=== PATIENT | male | born 1940 | race Caucasian/White ===

== ENCOUNTER 2021-12-01 06:32 | Emergency (ER) | payer OTHER, MEDICARE ==
[2021-12-01 06:53] LABS: Absolute Lymphocytes (CBC) 1.6 K/uL (0.7-4.9); Hematocrit 42.3 % (39.6-49.0); Lymphocytes % 26.8 % (15.3-44.8); MPV 10.3 fL (7.6-11.3); RBC Red Blood Cell Count 4.62 M/uL (4.33-5.43)
[2021-12-01] MEDS ORDERED: NA CHLORIDE 0.9% 1,000 ML ONE (06:54)
[2021-12-01] MEDS ORDERED: AMIODARONE HCL 200 MG TAB ONE (06:54)
[2021-12-01] MEDS ORDERED: Magnesium Sulfate 2gm IVPB 2 G/50 ML BAG IV ONE (06:54)
[2021-12-01 06:58] LABS: Protime INR 2.62
--- NOTE | 2021-12-01 07:03 | ER ---
Nurse's Notes [facility] Name: Babar Andres Jr Age: 81 yrs Sex: Male : 1940 Arrival Date: 12/01/2021 Time: 06:33 Bed 4 Private MD: Diagnosis: Presence of cardiac pacemaker;Encounter for adjustment and management of automatic implantable cardiac defibrillator-discharge;Chest pain, unspecified;Cardiomegaly Presentation: 12/01 06:35 Chief complaint: EMS states: toned out for defibrillator going off. went off in the as6 night and then again this morning. Coronavirus screen: At this time, the client does not indicate any symptoms associated with coronavirus-19. Ebola Screen: No symptoms or risks identified at this time. Initial Sepsis Screen: Does the patient meet any 2 criteria? No. Patient's initial sepsis screen is negative. Does the patient have a suspected source of infection? No. Patient's initial sepsis screen is negative. Risk Assessment: Do you want to hurt yourself or someone else? Patient reports no desire to harm self or others. Onset of symptoms was November 30, 2021. Care prior to arrival: IV initiated. 22 GA, in the right hand. 06:35 Method Of Arrival: EMS: [facility] as6 06:35 Acuity: GISSELLE 2 Historical: - Allergies: 06:38 PENICILLINS; as6 - Home Meds: 06:38 Vitamin D Oral 50,000 unit weekly [Active]; glimepiride 2 mg Oral tab 1 tab once daily as6 [Active]; amiodarone 200 mg Oral tab 1 tab 2 times per day [Active]; carvedilol 25 mg oral tab 1 tab 2 times per day [Active]; warfarin 1 mg Oral tab 1 tab once daily [Active]; quinapril 40 mg Oral tab 1 tab once daily [Active]; simvastatin 20 mg Oral tab 1 tab once daily [Active]; tamsulosin 0.4 mg oral cap 1 cap once daily [Active]; furosemide 80 mg Oral tab 1 tab 2 times per day [Active]; montelukast 10 mg oral tab 1 tab once daily [Active]; spironolactone 25 mg Oral tab 1 tab once daily [Active]; - PMHx: 06:38 Atrial fibrillation; Congestive heart failure; Diabetes mellitus; Hypertensive disorder;as6 - PSHx: 06:38 pacemaker; eye; as6 - Immunization history:: Client reports having NOT received the Covid vaccine. - Social history:: Smoking status: Patient/guardian denies using tobacco, but has a distant history of tobacco abuse. - Family history:: not pertinent. Screenin:49 Abuse screen: Denies threats or abuse. Denies injuries from another. Nutritional as6 screening: No deficits noted. Tuberculosis screening: No symptoms or risk factors identified. Fall Risk None identified. Assessment: 06:52 General: Appears in no apparent distress. comfortable, Behavior is calm, cooperative. as6 Pain: Denies pain. Neuro: Level of Consciousness is awake, alert, obeys commands, Oriented to person, place, time, situation. Cardiovascular: Edema is 3+ to BLE Rhythm is atrial pacer. Respiratory: Respiratory effort is even, unlabored, Respiratory pattern is regular, symmetrical. 07:00 Reassessment: REPORT FROM FLACO DELAROSA. 81YO WM P/W DEFIB FIRING. TRANSFER IN PROCESS. bp 08:00 Reassessment: REPORT TO IMMANUEL DELAROSA AT [facility]. TRANSPORT PENDING. bp 09:11 Reassessment: TRANSPORT TO B/S. bp Vital Signs: 06:35 BP 121 / 84; Pulse 86; Resp 15 S; Temp 98.6(O); Pulse Ox 93% on R/A; Weight 107.95 kg as6 (R); Height 6 ft. 2 in. (187.96 cm) (R); Pain 0/10; 07:00 BP 124 / 71; Pulse 73; Resp 21; Pulse Ox 96% ; bp 08:00 BP 116 / 66; Pulse 70; Resp 17; Pulse Ox 95% ; bp 09:11 BP 115 / 60; Pulse 72; Resp 16; Pulse Ox 95% ; bp 06:35 Body Mass Index 30.56 (107.95 kg, 187.96 cm) as6 ED Course: 06:33 Patient arrived in ED. as6 06:37 Cain Hendricks MD is Attending Physician. chris 06:38 Triage completed. as6 06:44 Initial lab(s) drawn, by me, sent to lab. bb 06:48 Arm band placed on. EKG completed in triage. Results shown to MD. as6 06:49 Flaco Blanc, RN is Primary Nurse. as6 06:49 Placed in gown. Bed in low position. Call light in reach. Side rails up X2. Cardiac as6 monitor on. Pulse ox on. NIBP on. 07:00 XRAY Chest (1 view) In Process Unspecified. EDMS 07:00 Maintain EMS IV. Dressing intact. Good blood return noted. Site clean \T\ dry. Gauge \T\ bp site: 22 GA R HAND. 07:25 initiated transfer to [facility],pt accepted in transfer by Dr alma delia Arreola, admin approval given by Aruna Quick. pt go to ER. 08:21 No provider procedures requiring assistance completed. Patient transferred, IV remains bp in place. 08:24 Primary Nurse role handed off by Flaco Blanc RN bp 08:24 Barrington Altman, RN is Primary Nurse. bp Administered Medications: 06:57 Discontinued: NS 0.9% 1000 ml IV at 125 ml/hr continuous chris 06:51 Drug: amiodarone 200 mg Route: PO; as6 07:45 Follow up: Response: No adverse reaction bp 06:52 Drug: NS 0.9% 1000 ml Route: IV; Rate: 125 ml/hr; Site: right antecubital; as6 06:52 Drug: Magnesium Sulfate 2 grams Route: IVPB; Infused Over: 1 hrs; Site: right as6 antecubital; 07:57 Follow up: Response: No adverse reaction; IV Status: Completed infusion ph 06:58 Drug: NS 0.9% 1000 ml Route: IV; Rate: 50 ml/hr; Site: right hand; as6 08:22 Follow up: IV Status: Infusion continued upon transfer bp Outcome: 07:03 ER care complete, transfer ordered by . chris 09:12 Transferred by ground EMS Note: [facility] bp 09:12 Condition: stable 09:12 Instructed on the need for transfer. 09:13 Patient left the ED. bp Signatures: Dispatcher [employer] EDMS Chana Palacios Corey, MD MD cha Ballard, Brenda, RN RN bb Cynthia Hedrick RN RN ph Barrington Altman RN RN bp Flaco Blanc RN RN as6 Corrections: (The following items were deleted from the chart) 06:48 06:38 Home Meds: amiodarone 100 mg Oral tab 1 tab every other day; as6 as6
--- NOTE | 2021-12-01 07:03 | EDPHYS ---
Physician Documentation [facility] Name: Babar Andres Jr Age: 81 yrs Sex: Male : 1940 Arrival Date: 12/01/2021 Time: 06:33 Bed 4 Private MD: ED Physician Cain Hendricks HPI: 12/01 06:47 This 81 yrs old Male presents to ER via EMS with complaints of cp , sob and chris defib fired x2. 06:47 The patient has shortness of breath at rest. Onset: The symptoms/episode began/occurred chris 1 day(s) ago. Duration: The symptoms are continuous, and are steadily getting worse. The patient's shortness of breath is aggravated by nothing, is alleviated by elevating head. The patient or guardian reports chest pain that is located primarily in the anterior chest wall, bilaterally. Onset: last night. The pain does not radiate. Associated signs and symptoms: The patient has no apparent associated signs or symptoms. Severity of symptoms: At their worst the symptoms were mild moderate in the emergency department the symptoms are unchanged. Associated signs and symptoms: Pertinent positives: lower extremity swelling, palpitations, shortness of breath. The chest pain is described as a pressure. Historical: - Allergies: 06:38 PENICILLINS; as6 - Home Meds: 06:38 Vitamin D Oral 50,000 unit weekly [Active]; glimepiride 2 mg Oral tab 1 tab once daily as6 [Active]; amiodarone 200 mg Oral tab 1 tab 2 times per day [Active]; carvedilol 25 mg oral tab 1 tab 2 times per day [Active]; warfarin 1 mg Oral tab 1 tab once daily [Active]; quinapril 40 mg Oral tab 1 tab once daily [Active]; simvastatin 20 mg Oral tab 1 tab once daily [Active]; tamsulosin 0.4 mg oral cap 1 cap once daily [Active]; furosemide 80 mg Oral tab 1 tab 2 times per day [Active]; montelukast 10 mg oral tab 1 tab once daily [Active]; spironolactone 25 mg Oral tab 1 tab once daily [Active]; - PMHx: 06:38 Atrial fibrillation; Congestive heart failure; Diabetes mellitus; Hypertensive disorder;as6 - PSHx: 06:38 pacemaker; eye; as6 - Immunization history:: Client reports having NOT received the Covid vaccine. - Social history:: Smoking status: Patient/guardian denies using tobacco, but has a distant history of tobacco abuse. - Family history:: not pertinent. ROS: 06:47 Constitutional: Negative for fever, chills, and weight loss, Eyes: Negative for injury, chris pain, redness, and discharge, ENT: Negative for injury, pain, and discharge, Neck: Negative for injury, pain, and swelling, Abdomen/GI: Negative for abdominal pain, nausea, vomiting, diarrhea, and constipation, Back: Negative for injury and pain, : Negative for injury, bleeding, discharge, and swelling, MS/Extremity: Negative for injury and deformity, Skin: Negative for injury, rash, and discoloration, Neuro: Negative for headache, weakness, numbness, tingling, and seizure, Psych: Negative for depression, anxiety, suicide ideation, homicidal ideation, and hallucinations, Allergy/Immunology: Negative for hives, rash, and allergies, Endocrine: Negative for neck swelling, polydipsia, polyuria, polyphagia, and marked weight changes. 06:47 Cardiovascular: Positive for chest pain, palpitations. Exam: 06:47 Constitutional: This is a well developed, well nourished patient who is awake, alert, chris and in no acute distress. Head/Face: Normocephalic, atraumatic. Eyes: Pupils equal round and reactive to light, extra-ocular motions intact. Lids and lashes normal. Conjunctiva and sclera are non-icteric and not injected. Cornea within normal limits. Periorbital areas with no swelling, redness, or edema. ENT: Nares patent. No nasal discharge, no septal abnormalities noted. Tympanic membranes are normal and external auditory canals are clear. Oropharynx with no redness, swelling, or masses, exudates, or evidence of obstruction, uvula midline. Mucous membranes moist. Neck: Trachea midline, no thyromegaly or masses palpated, and no cervical lymphadenopathy. Supple, full range of motion without nuchal rigidity, or vertebral point tenderness. No Meningismus. Chest/axilla: Normal chest wall appearance and motion. Nontender with no deformity. No lesions are appreciated. Cardiovascular: Regular rate and rhythm with a normal S1 and S2. No gallops, murmurs, or rubs. Normal PMI, no JVD. No pulse deficits. Respiratory: Lungs have equal breath sounds bilaterally, clear to auscultation and percussion. No rales, rhonchi or wheezes noted. No increased work of breathing, no retractions or nasal flaring. Abdomen/GI: Soft, non-tender, with normal bowel sounds. No distension or tympany. No guarding or rebound. No evidence of tenderness throughout. Back: No spinal tenderness. No costovertebral tenderness. Full range of motion. Male : Normal genitalia with no discharge or lesions. Skin: Warm, dry with normal turgor. Normal color with no rashes, no lesions, and no evidence of cellulitis. Neuro: Awake and alert, GCS 15, oriented to person, place, time, and situation. Cranial nerves II-XII grossly intact. Motor strength 5/5 in all extremities. Sensory grossly intact. Cerebellar exam normal. Normal gait. Psych: Awake, alert, with orientation to person, place and time. Behavior, mood, and affect are within normal limits. 06:47 Musculoskeletal/extremity: ROM: intact in all extremities, full active range of motion, full passive range of motion, Circulation is intact in all extremities. Sensation intact. Compartment Syndrome exam of affected extremity: is normal. DVT Exam: no pain, negative Homans' sign noted on exam, no appreciated bluish discoloration, no erythema, no increased warmth, swelling, tenderness. 06:58 ECG was reviewed by the Attending Physician. chris Vital Signs: 06:35 BP 121 / 84; Pulse 86; Resp 15 S; Temp 98.6(O); Pulse Ox 93% on R/A; Weight 107.95 kg as6 (R); Height 6 ft. 2 in. (187.96 cm) (R); Pain 0/10; 07:00 BP 124 / 71; Pulse 73; Resp 21; Pulse Ox 96% ; bp 08:00 BP 116 / 66; Pulse 70; Resp 17; Pulse Ox 95% ; bp 09:11 BP 115 / 60; Pulse 72; Resp 16; Pulse Ox 95% ; bp 06:35 Body Mass Index 30.56 (107.95 kg, 187.96 cm) as6 MDM: 06:37 Patient medically screened. chris 06:54 Differential diagnosis: Anemia Anxiety Reaction Chronic Obstructive Pulmonary Disease chris abnormal EKG, acute myocardial infarction, acute pericarditis, anxiety, esophagitis, gastritis, peptic ulcer disease, pneumonia, pneumothorax, pulmonary embolus, Myocardial Infarction pneumonia, pulmonary edema, reactive airway disease, Unstable Angina. Antibiotic administration: Not indicated. HEART Score: History: Slightly Suspicious (0), ECG: Non specific repolarization disturbance / LBTB / PM (1), Age: > or = 65 years (2), Risk Factors: > or = 3 Risk factors for atherosclerotic disease (2), [Hypercholesterolemia] [Hypertension] [DM] [+ Family HX] [Obesity]. The patient was not given aspirin in the Emergency Department. Not indicated due to patient's past medical history. The patient's Wells Deep Vein Thrombosis Score was calculated as follows: Total Score: 0. This patient was found to be at low risk for a deep vein thrombosis by using the Well's assessment criteria Total Score: 0-2 Pts- Low Risk. The patient's pulmonary embolism risk score was calculated as follows: Total Score: 0-2 points. This patient was found to be at low risk for a pulmonary embolism by using the Well's assessment criteria Total Score: 0-2 points. This patient was found to be at low risk for a pulmonary embolism by using the Well's assessment criteria. JACLYN Risk Score: 1 - patient's age is greater or equal to 65 years, 1 - Three or more CAD risk factors, 1- Known CAD, 1 - Recent [<24hrs] Severe Angina, TOTAL SCORE = 4. Immunization status: Pneumococcal vaccine: Influenza vaccine: Data reviewed: vital signs, nurses notes, lab test result(s), EKG, radiologic studies, plain films. Data interpreted: cloud software engineer: rate is 86 beats/min, Pulse oximetry: on room air is 93 %. Test interpretation: by ED physician or midlevel provider: ECG, plain radiologic studies. Counseling: I had a detailed discussion with the patient and/or guardian regarding: the historical points, exam findings, and any diagnostic results supporting the discharge/admit diagnosis, the presence of at least one elevated blood pressure reading (>120/80) during this emergency department visit, lab results, radiology results, the need to transfer to another facility, for higher level of care, [facility] does not immediately have the required specialist. 12/01 06:39 Order name: Basic Metabolic Panel; Complete Time: 07:20 chris 12/01 06:39 Order name: CBC with Diff; Complete Time: 07:20 chris 12/01 06:39 Order name: LFT's; Complete Time: 07:20 chris 12/01 06:39 Order name: Magnesium; Complete Time: 07:20 12/01 06:39 Order name: NT PRO-BNP; Complete Time: 07:20 12/01 06:39 Order name: PT-INR; Complete Time: 07:20 chris 12/01 06:39 Order name: Troponin HS; Complete Time: 07:20 [facility] 12/01 06:39 Order name: XRAY Chest (1 view); Complete Time: 07:20 chris 12/01 06:39 Order name: EKG; Complete Time: 06:40 chris 12/01 06:39 Order name: SARS-COV-2 RT PCR (Document "Date of Onset" if Symptomatic) 12/01 06:39 Order name: Cardiac monitoring; Complete Time: 06:48 12/01 06:39 Order name: EKG - Nurse/Tech; Complete Time: 06:48 chris 12/01 06:39 Order name: IV Saline Lock; Complete Time: 06:48 [facility] 12/01 06:39 Order name: Labs collected and sent; Complete Time: 06:48 12/01 06:39 Order name: O2 Per Protocol; Complete Time: 06:48 chris 12/01 06:39 Order name: O2 Sat Monitoring; Complete Time: 06:48 chris EC:58 Rate is 77 beats/min. Rhythm is regular. QRS [place] is Normal. DC interval is normal. QRS chris interval is normal. QT interval is prolonged. No Q waves. T waves are Normal. No ST changes noted. Clinical impression: Abnormal EKG without significant change and No evidence of ischemia. Interpreted by me. Administered Medications: 06:57 Discontinued: NS 0.9% 1000 ml IV at 125 ml/hr continuous chris 06:51 Drug: amiodarone 200 mg Route: PO; as6 07:45 Follow up: Response: No adverse reaction bp 06:52 Drug: NS 0.9% 1000 ml Route: IV; Rate: 125 ml/hr; Site: right antecubital; as6 06:52 Drug: Magnesium Sulfate 2 grams Route: IVPB; Infused Over: 1 hrs; Site: right as6 antecubital; 07:57 Follow up: Response: No adverse reaction; IV Status: Completed infusion ph 06:58 Drug: NS 0.9% 1000 ml Route: IV; Rate: 50 ml/hr; Site: right hand; 08:22 Follow up: IV Status: Infusion continued upon transfer bp Disposition Summary: 12/01/21 07:03 Transfer Ordered Transfer Location: Other Acute Care Facility chris Reason: Higher level of care chris Condition: Fair chris Problem: new chris Symptoms: have improved chris Accepting Physician: dr caraballo(12/01/21 09:13) bp Diagnosis - Presence of cardiac pacemaker chris - Encounter for adjustment and management of automatic implantable cardiac chris defibrillator - discharge - Chest pain, unspecified chris - Cardiomegaly chris Forms: - Medication Reconciliation Form chris - SBAR form chris Signatures: Dispatcher [employer] EDMS Cain Hendricks MD MD cha Peltier, Brian RN RN bp Flaco Blanc RN RN as6 Cynthia Hedrick RN ph Corrections: (The following items were deleted from the chart) 06:48 06:38 Home Meds: amiodarone 100 mg Oral tab 1 tab every other day; 07:21 07:03 dr ilya perez chris 09:13 07:21 dr ilya perez bp
--- NOTE | 2021-12-01 07:07 | RAD REPORT ---
EXAM DESCRIPTION: RAD - Chest Single View - 12/01/2021 6:59 am CLINICAL HISTORY: CHEST PAIN COMPARISON: Two view chest 03/24/2021 TECHNIQUE: AP portable chest image was obtained 12/01/2021 6:59 am . FINDINGS: No peripheral mass or consolidation. Baseline interstitial pattern is accentuated slightly by lower lung volumes. A minimal interstitial edema or infiltrate could be masked. Significant cardi omegaly is present with central vasculature in the range for normal. Left subclavian defibrillator is in place. No measurable pleural effusion and no pneumothorax. No acute bony abnormality seen. No acu te aortic findings suspected. IMPRESSION: Cardiomegaly without significant failure or volume overload findings. Shallow inspiration exam accentuates interstitial pattern a mild interstitial edema or infiltrate cou ld be masked.
[2021-12-01 07:15] LABS: Albumin 3.9 g/dL (3.4-5.0); Bilirubin Direct 0.3 mg/dL (0-0.2); Bilirubin Total 0.8 mg/dL (0.2-1.0); Magnesium 2.3 mg/dL (1.8-2.4); Potassium 3.7 mmol/L (3.5-5.1); Protein, Total 7.7 g/dL (6.4-8.2); Troponin High Sensitivity 47.8 pg/mL (<58.9)
[2021-12-01 09:19] VITALS: TEMP 98.6
[2021-12-01 09:22] VITALS: O2SAT 95
[2021-12-01 09:23] VITALS: BP 115/60
--- NOTE | 2021-12-01 09:32 | EKG ---
Test Date: 2021-12-01 Test Time: 06:40:45 Materials Handler: GER MEASUREMENT RESULTS: Intervals: Rate: 77 LA: QRSD: 194 QT: 484 QTc: 547 [place]: P: LA: QRS: 199 T: 118 INTERPRETIVE STATEMENTS: Electronic ventricular pacemaker Compared to ECG 02/27/2012 08:23:52 Sinus rhythm no longer present First degree AV block no longer present Left-axis deviation no longer present Right bundle-branch block no longer present Electronically Signed On 12-01-21 09:31:39 CDT by Juan Gonsales
== END 2021-12-01 09:13 ==
LOC: ER 06:32
DX: Z45.02 Encounter for adjustment and management of automatic implantable cardiac defibrillator (principal); I51.7 Cardiomegaly; E11.9 Type 2 diabetes mellitus without complications; I10 Essential (primary) hypertension; I50.9 Heart failure, unspecified; I48.91 Unspecified atrial fibrillation; Z79.01 Long term (current) use of anticoagulants; Z20.822 Contact with and (suspected) exposure to COVID-19; Z88.0 Allergy status to penicillin
CPT/HCPCS: 93005; 85025; 80048; 36415; 83735; 85610; 80076; 84484; 83880; 71045; U0003; J3475; J7030; 96365; 99285

== ENCOUNTER 2023-03-03 11:10 | Emergency (ER) | payer OTHER, MEDICARE ==
--- OUTSIDE RECORDS SUMMARY | 2023-03-03 11:17 | XMS REPORT | Continuity of Care Document ---
:1940 Author Organization [facility] t Address [address] [place] [address] [place] [id number] Care Team Providers Name Role Phone Stuart Motley Attending Clinician Unavailable Marv, Rosalino Attending Clinician Unavailable Stuart Motley Admitting Clinician Unavailable Marv, [place] Admitting Clinician Unavailable Payers Payer Name Policy Type Policy Number Effective Date Expiration Date S ource Problems This patient has no known problems. Allergies, Adverse Reactions, Alerts Allergy Allergy Status Severity Reaction(s) Onset Inactive Treating Comm ents Source Name Type Date Date Clinician Penicill DA Active U RASH-UNKNOWN HC A ins 09-12 [place] 00:00: [address] Medications This patient has no known medications. Procedures Procedure Date / Time Performed Performing Clinician Suraj pinky [id number] 2021-12-15 00:00:00 [facility] [id number] 2021-12-15 00:00:00 [facility] [id number] 2021-12-15 00:00:00 [facility] Encounters Start End Encounter Admission Attending Care Care Encounter Source Date/Time Date/Time Type Type Clinicians Facility Department ID 2022-06-08 2022-06-08 Outpatient ZAIRE Gibson SURG [id number] [facility] 09:53:00 09:53:00 Stuart Llanos [facility] 2021-12-15 2021-12-17 Inpatient ZAIRE Gibson TELE [id number] [facility] 18:04:00 15:59:00 Stuart 95 [facility] 2021-12-15 2021-12-17 Inpatient ESVIN Motley [facility] TELE [id number] [facility] 18:04:00 15:59:00 Stuart [id number] [facility] 2021-12-01 2021-12-03 Inpatient MARVA Fair, [facility] TELE [id number] 50 [facility] 11:03:00 12:31:00 [place] 26 [facility] Results Test Description Test Time Test Comments Results Result Comments Source GLUCOSE BEDSIDE TESTING 2022-06-08 15:04:00 Test Item Value Reference Range Interpretation Comme nts GLUCOSE BEDSIDE TESTING (test code = GLUBED) 119 MG/DL 60-99 H BASIC METABOLIC [id number] 11:51:00 Test Item Value Reference Range Interpretation Comments SODIUM (test code = 142 MMOL/L 137-145 N NA) POTASSIUM (test code = 4.9 MMOL/L 3.5-5.1 N K) CHLORIDE (test code = 98 MMOL/L 98-107 N CL) CARBON DIOXIDE (test 36 MMOL/L 22-30 H code = CO2) ANION GAP (test code = 13 MMOL/L 14-24 L GAP) GLUCOSE (test code = 176 MG/DL 74-106 H GLU) BLOOD UREA NITROGEN 37 MG/DL 9-20 H (test code = BUN) GLOMERULAR FILTRATION 48 Report ing units: RATE (test code = GFR) ml/mi n/1.73 m2 (Modified MDRD Formula)Referen ce Range: > or = 6 0 ml/min/1.73 m2 CREATININE (test code 1.40 MG/DL 0.66-1.25 H = CREAT) CALCIUM (test code = 9.3 MG/DL 8.4-10.2 N CA) [id number] 11:51:00 Test Item Value Reference Range Interpretation Comments MAGNESIUM (test code = MAG) 2.4 MG/DL 1.6-2.3 H PROTHROMBIN [id number] 11:33:00 Test Item Value Reference Range Interpretation Comments PROTHROMBIN TIME 11.9 SECONDS 9.4-12.7 PATIENT (test code = PTP) INTERNATIONAL NORMAL 1.1 0.86-1.14 N The INR is to be RATIO (test code = used only for INR) monitoring oral anticoagulantth erap y. INDICATION I NR VALUE ---- ---- ---- -------1. Prophylaxis, de ep venous thrombos is, including high risk surgery. 2.0 - 3.0 2. Prophylaxis, deep venous thrombosis, hip surgery, treatm ent for deep venous thrombosis or pulmonary prevention of systemic emboli sm in patients wit h valvular heart disease, atrial fibrillation, tissue heart va lve, or acute myocar dial infarction. 2.0 - 3.0 3. Netezza Developer al prosthesis hear t valves, recurre nt systemic emboli sm. 3.0 - 4.5 PTT [id number] 11:33:00 Test Item Value Reference Range Interpretation Comments PTT ACTIVATED (test code = APTT) 25.5 SECONDS 26.2-35.4 L CBC W/AUTO [id number] 10:53:00 Test Item Value Reference Range Interpretation Comments WHITE BLOOD CELL (test code = 7.3 K/MM3 3.8-9.8 N WBC) RED BLOOD CELL (test code = 5.13 M/MM3 3.95-5.67 N RBC) HEMOGLOBIN (test code = HGB) 15.4 G/DL 12.4-16.7 N HEMATOCRIT (test code = HCT) 49.3 % 35.9-49.5 N MEAN CELL VOLUME (test code = 96 fL 81.7-96.1 N MCV) MEAN CELL HGB (test code = MCH) 30.0 pg 27.6-33.2 N MEAN CELL HGB CONCETRATION 31.2 % 32.9-35.5 L (test code = MCHC) RED CELL DISTRIBUTION WIDTH 13.9 % 12.1-15.2 N (test code = RDW) PLATELET COUNT (test code = 111 K/MM3 129-368 L PLT) MEAN PLATELET VOLUME (test code 11.9 fl 7.4-10.4 H = MPV) NEUTROPHIL % (test code = NT%) 61.9 % 43-75 N IMMATURE GRANULOCYTE % (test 0.3 % 0.0-2.0 N code = IG%) LYMPHOCYTE % (test code = LY%) 29.2 % 14-44 N MONOCYTE % (test code = MO%) 6.7 % 4-13 N EOSINOPHIL % (test code = EO%) 1.4 % 0-6 N BASOPHIL % (test code = BA%) 0.5 % 0-2 N NUCLEATED RBC % (test code = 0.0 % 0-1.0 N NRBC%) NEUTROPHIL # (test code = NT#) 4.54 K/mm3 2.0-7.6 N IMMATURE GRANULOCYTE # (test 0.02 x10 3/uL 0-0.03 N code = IG#) LYMPHOCYTE # (test code = LY#) 2.14 K/mm3 1.0-3.8 N MONOCYTE # (test code = MO#) 0.49 K/mm3 0.1-0.8 N EOSINOPHIL # (test code = EO#) 0.10 K/mm3 0.0-0.2 N BASOPHIL # (test code = BA#) 0.04 K/mm3 0.0-0.2 N NUCLEATED RBC # (test code = 0.00 K/mm3 0.0-0.1 N NRBC#) PROTHROMBIN [id number] 09:47:00 Test Item Value Reference Range Interpretation Comments PROTHROMBIN TIME 21.7 SECONDS 9.4-12.7 H PATIENT (test code = PTP) INTERNATIONAL NORMAL 1.9 0.86-1.14 H The INR is to be RATIO (test code = used only for INR) monitoring oral anticoagulantth erap y. INDICATION I NR VALUE ---- ---- ---- -------1. Prophylaxis, de ep venous thrombos is, including high risk surgery. 2.0 - 3.0 2. Prophylaxis, deep venous thrombosis, hip surgery, treatm ent for deep venous thrombosis or pulmonary prevention of systemic emboli sm in patients wit h valvular heart disease, atrial fibrillation, tissue heart va lve, or acute myocar dial infarction. 2.0 - 3.0 3. Netezza Developer al prosthesis hear t valves, recurre nt systemic emboli sm. 3.0 - 4.5 BASIC METABOLIC [id number] 08:40:00 Test Item Value Reference Range Interpretation Comments SODIUM (test code = 138 MMOL/L 137-145 N NA) POTASSIUM (test code = 4.2 MMOL/L 3.5-5.1 N K) CHLORIDE (test code = 99 MMOL/L 98-107 N CL) CARBON DIOXIDE (test 33 MMOL/L 22-30 H code = CO2) GLUCOSE (test code = 129 MG/DL 74-106 H GLU) BLOOD UREA NITROGEN 31 MG/DL 9-20 H (test code = BUN) GLOMERULAR FILTRATION > 60 Report ing units: RATE (test code = GFR) ml/mi n/1.73 m2 (Modified MDRD Formula)Referen ce Range: > or = 6 0 ml/min/1.73 m2 CREATININE (test code 1.10 MG/DL 0.66-1.25 N = CREAT) CALCIUM (test code = 8.6 MG/DL 8.4-10.2 N CA) CBC W/AUTO [id number] 08:29:00 Test Item Value Reference Range Interpretation Comments WHITE BLOOD CELL (test code = 7.4 K/MM3 3.8-9.8 N WBC) RED BLOOD CELL (test code = 4.17 M/MM3 3.95-5.67 N RBC) HEMOGLOBIN (test code = HGB) 12.6 G/DL 12.4-16.7 N HEMATOCRIT (test code = HCT) 40.6 % 35.9-49.5 N MEAN CELL VOLUME (test code = 97 fL 81.7-96.1 H MCV) MEAN CELL HGB (test code = MCH) 30.2 pg 27.6-33.2 N MEAN CELL HGB CONCETRATION 31.0 % 32.9-35.5 L (test code = MCHC) RED CELL DISTRIBUTION WIDTH 14.3 % 12.1-15.2 N (test code = RDW) PLATELET COUNT (test code = 109 K/MM3 129-368 L PLT) MEAN PLATELET VOLUME (test code 12.1 fl 7.4-10.4 H = MPV) NEUTROPHIL % (test code = NT%) 69.9 % 43-75 N IMMATURE GRANULOCYTE % (test 0.4 % 0.0-2.0 N code = IG%) LYMPHOCYTE % (test code = LY%) 20.9 % 14-44 N MONOCYTE % (test code = MO%) 7.9 % 4-13 N EOSINOPHIL % (test code = EO%) 0.4 % 0-6 N BASOPHIL % (test code = BA%) 0.5 % 0-2 N NUCLEATED RBC % (test code = 0.0 % 0-1.0 N NRBC%) NEUTROPHIL # (test code = NT#) 5.16 K/mm3 2.0-7.6 N IMMATURE GRANULOCYTE # (test 0.03 x10 3/uL 0-0.03 N code = IG#) LYMPHOCYTE # (test code = LY#) 1.54 K/mm3 1.0-3.8 N MONOCYTE # (test code = MO#) 0.58 K/mm3 0.1-0.8 N EOSINOPHIL # (test code = EO#) 0.03 K/mm3 0.0-0.2 N BASOPHIL # (test code = BA#) 0.04 K/mm3 0.0-0.2 N NUCLEATED RBC # (test code = 0.00 K/mm3 0.0-0.1 N NRBC#) - XR CHEST [id number] 08:18:00 [facility] 1940 Sex: M Patient Name: JENNIFER RODGERS Unit No: [id number] EXAMS: CPT CODE: [id number] XR CHEST 1V 11776 B2 EXAM: - XR CHEST 1V DATE: 12/17/2021 5:00 AM HISTORY: CHF COMPARISON: Chest x-ray 12/15/2021 FINDINGS: Interstitial opacities in both lungs. Pulmonary vascular congestion. Enlargement of the cardiac silhouette. No airspace consolidation or pleural effusions. No pneumothorax. 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 IMPRESSION: Stable mild fluid overload at 0818 Reported and signed by: Roma Tabares MD CC: Stuart Motley Technologist: Rose Marie Nagy, RT (R) Transcrpt Date/Tm/Trnsp: 12/17/2021 (08) t.[email or web address].MOP Orig Print D/T: S: 12/17/2021 (820) [facility] NAME: JENNIFER RODGERS [address] PHYS: [place] [address] : 1940 AGE: 81 SEX: M LOC: [id number] PHONE #: [phone] EXAM DATE: 12/17/2021 STATUS: ADM IN FAX #: [phone] RADIOLOGY NO: PAGE 1 Signed ReportBASIC METABOLIC [id number] 05:14:00 Test Item Value Reference Range Interpretation Comments SODIUM (test code = 141 MMOL/L 137-145 N NA) POTASSIUM (test code = 3.9 MMOL/L 3.5-5.1 N K) CHLORIDE (test code = 105 MMOL/L 98-107 N CL) CARBON DIOXIDE (test 28 MMOL/L 22-30 N code = CO2) ANION GAP (test code = 12 MMOL/L 14-24 L GAP) GLUCOSE (test code = 166 MG/DL 74-106 H GLU) BLOOD UREA NITROGEN 27 MG/DL 9-20 H (test code = BUN) GLOMERULAR FILTRATION > 60 Report ing units: RATE (test code = GFR) ml/mi n/1.73 m2 (Modified MDRD Formula)Referen ce Range: > or = 6 0 ml/min/1.73 m2 CREATININE (test code 1.00 MG/DL 0.66-1.25 = CREAT) CALCIUM (test code = 8.5 MG/DL 8.4-10.2 N CA) PROTHROMBIN [id number] 05:06:00 Test Item Value Reference Range Interpretation Comments PROTHROMBIN TIME 25.2 SECONDS 9.4-12.7 H PATIENT (test code = PTP) INTERNATIONAL NORMAL 2.2 0.86-1.14 H The INR is to be RATIO (test code = used only for INR) monitoring oral anticoagulantth erap y. INDICATION I NR VALUE ---- ---- ---- -------1. Prophylaxis, de ep venous thrombos is, including high risk surgery. 2.0 - 3.0 2. Prophylaxis, deep venous thrombosis, hip surgery, treatm ent for deep venous thrombosis or pulmonary prevention of systemic emboli sm in patients wit h valvular heart disease, atrial fibrillation, tissue heart va lve, or acute myocar dial infarction. 2.0 - 3.0 3. Netezza Developer al prosthesis hear t valves, recurre nt systemic emboli sm. 3.0 - 4.5 CBC W/AUTO [id number] 04:55:00 Test Item Value Reference Range Interpretation Comments WHITE BLOOD CELL (test code = 9.2 K/MM3 3.8-9.8 N WBC) RED BLOOD CELL (test code = 4.20 M/MM3 3.95-5.67 N RBC) HEMOGLOBIN (test code = HGB) 12.6 G/DL 12.4-16.7 N HEMATOCRIT (test code = HCT) 40.6 % 35.9-49.5 N MEAN CELL VOLUME (test code = 97 fL 81.7-96.1 H MCV) MEAN CELL HGB (test code = MCH) 30.0 pg 27.6-33.2 N MEAN CELL HGB CONCETRATION 31.0 % 32.9-35.5 L (test code = MCHC) RED CELL DISTRIBUTION WIDTH 14.1 % 12.1-15.2 N (test code = RDW) PLATELET COUNT (test code = 104 K/MM3 129-368 L PLT) MEAN PLATELET VOLUME (test code 12.2 fl 7.4-10.4 H = MPV) NEUTROPHIL % (test code = NT%) 84.5 % 43-75 H IMMATURE GRANULOCYTE % (test 0.4 % 0.0-2.0 N code = IG%) LYMPHOCYTE % (test code = LY%) 10.0 % 14-44 L MONOCYTE % (test code = MO%) 5.0 % 4-13 N EOSINOPHIL % (test code = EO%) 0.0 % 0-6 N BASOPHIL % (test code = BA%) 0.1 % 0-2 N NUCLEATED RBC % (test code = 0.0 % 0-1.0 N NRBC%) NEUTROPHIL # (test code = NT#) 7.76 K/mm3 2.0-7.6 H IMMATURE GRANULOCYTE # (test 0.04 x10 3/uL 0-0.03 H code = IG#) LYMPHOCYTE # (test code = LY#) 0.92 K/mm3 1.0-3.8 L MONOCYTE # (test code = MO#) 0.46 K/mm3 0.1-0.8 N EOSINOPHIL # (test code = EO#) 0.00 K/mm3 0.0-0.2 N BASOPHIL # (test code = BA#) 0.01 K/mm3 0.0-0.2 N NUCLEATED RBC # (test code = 0.00 K/mm3 0.0-0.1 N NRBC#) - XR CHEST [id number] 19:07:00 [facility] 1940 Sex: M Patient Name: JENNIFER RODGERS Unit No: [id number] EXAMS: CPT CODE: [id number] XR CHEST 1V [id number] Location: H3 CHEST X-RAY: AP frontal projection, one view, 12/15/21 CLINICAL HISTORY: CHF COMPARISON EXAMS: 09/12/13 chest x-ray exam FINDINGS: The heart size is prominent even more so than previously seenwith moderate degree of cardiomegaly. Pacemaker seen in situ. Pulmonary venous engorgement and mild i nterstitial edema. This appears slightly more prominent. IMPRESSION: Small degree of evolving fluidoverload at 1907 Reported and signed by: Orville Pradhan MD CC: Stuart Motley Technologist: Daya Bruce RT(R) T qi Date/Tm/Trnsp: 12/15/2021 (1906) [id number] Orig Print D/T: S: 12/15/2021 (2114) [facility] NAME: JENNIFER RODGERS [address] PHYS: [place] [address] : 1940 AGE: 81 SEX: M LOC: [id number].I14 A PHONE #: [phone] EXAM DATE: 12/15/2021 STATUS: ADM IN FAX #: [phone] RADIOLOGY NO: PAGE 1 Signed ReportACT-ISTAT 2021-12-15 17:48:00 Test Item Value Reference Range Interpretation Comments ACT-ISTAT (test code = ACTI) 303 SEC 74-137 H [id number] 17:28:00 Test Item Value Reference Range Interpretation Comments ACT-ISTAT (test code = ACTI) 321 SEC 74-137 H [id number] 17:28:00 Test Item Value Reference Range Interpretation Comments ACT-ISTAT (test code = ACTI) 345 SEC 74-137 H [id number] 16:27:00 Test Item Value Reference Range Interpretation Comments ACT-ISTAT (test code = ACTI) 285 SEC 74-137 H [id number] 15:58:00 Test Item Value Reference Range Interpretation Comments ACT-ISTAT (test code = ACTI) 297 SEC 74-137 H [id number] 15:29:00 Test Item Value Reference Range Interpretation Comments ACT-ISTAT (test code = ACTI) 237 SEC 74-137 H BASIC METABOLIC [id number] 10:53:00 Test Item Value Reference Range Interpretation Comments SODIUM (test code = 142 MMOL/L 137-145 N NA) POTASSIUM (test code = 3.9 MMOL/L 3.5-5.1 N K) CHLORIDE (test code = 98 MMOL/L 98-107 N CL) CARBON DIOXIDE (test 34 MMOL/L 22-30 H code = CO2) ANION GAP (test code = 14 MMOL/L 14-24 N GAP) GLUCOSE (test code = 160 MG/DL 74-106 H GLU) BLOOD UREA NITROGEN 33 MG/DL 9-20 H (test code = BUN) GLOMERULAR FILTRATION 48 Report ing units: RATE (test code = GFR) ml/mi n/1.73 m2 (Modified MDRD Formula)Referen ce Range: > or = 6 0 ml/min/1.73 m2 CREATININE (test code 1.40 MG/DL 0.66-1.25 H = CREAT) CALCIUM (test code = 10.0 MG/DL 8.4-10.2 N CA) [id number] 10:53:00 Test Item Value Reference Range Interpretation Comments MAGNESIUM (test code = MAG) 2.5 MG/DL 1.6-2.3 H COVID 19 Asymptomatic IH [id number] 10:48:00 Test Item Value Reference Range Interpretation Comments COVID 19 NEGATIVE Negative "Negative resul ts from Asymptomatic IH AG patients with symptom (test code = onset beyondfiv e days, COVNONPUIAG) should be treat ed as presumptive, andconfirmation with a molecular assay , if necessary forpa tient management may be performed. Nega tive results do notr ule out COVID-19 and sh ould not be used as the sole basisfor treatm ent or patient managem ent decisions, includinginfect ion control decisio ns. Negative result s should beconsidered in the context of a pa tients recent exposure s,history, and the presenc e of clinical signs and symptomsconsist ent with COVID-19.This t est detects both vi able andnon-viable S ARS-CoV and SARS CoV-2. Test performance dep endson the amount of virus (antigen) in the sample." PROTHROMBIN [id number] 10:45:00 Test Item Value Reference Range Interpretation Comments PROTHROMBIN TIME 28.3 SECONDS 9.4-12.7 H PATIENT (test code = PTP) INTERNATIONAL NORMAL 2.5 0.86-1.14 H The INR is to be RATIO (test code = used only for INR) monitoring oral anticoagulantth erap y. INDICATION I NR VALUE ---- ---- ---- -------1. Prophylaxis, de ep venous thrombos is, including high risk surgery. 2.0 - 3.0 2. Prophylaxis, deep venous thrombosis, hip surgery, treatm ent for deep venous thrombosis or pulmonary prevention of systemic emboli sm in patients wit h valvular heart disease, atrial fibrillation, tissue heart va lve, or acute myocar dial infarction. 2. 0 - 3.0 3. Netezza Developer al prosthesis hear t valves, recurre nt systemic emboli sm. 3.0 - 4.5 PTT [id number] 10:45:00 Test Item Value Reference Range Interpretation Comments PTT ACTIVATED (test code = APTT) 39.3 SECONDS 26.2-35.4 H CBC W/AUTO [id number] 10:21:00 Test Item Value Reference Range Interpretation Comments WHITE BLOOD CELL (test code = 6.4 K/MM3 3.8-9.8 N WBC) RED BLOOD CELL (test code = 4.53 M/MM3 3.95-5.67 N RBC) HEMOGLOBIN (test code = HGB) 13.6 G/DL 12.4-16.7 N HEMATOCRIT (test code = HCT) 43.7 % 35.9-49.5 N MEAN CELL VOLUME (test code = 97 fL 81.7-96.1 H MCV) MEAN CELL HGB (test code = MCH) 30.0 pg 27.6-33.2 N MEAN CELL HGB CONCETRATION 31.1 % 32.9-35.5 L (test code = MCHC) RED CELL DISTRIBUTION WIDTH 14.3 % 12.1-15.2 N (test code = RDW) PLATELET COUNT (test code = 117 K/MM3 129-368 L PLT) MEAN PLATELET VOLUME (test code 12.2 fl 7.4-10.4 H = MPV) NEUTROPHIL % (test code = NT%) 68.5 % 43-75 N IMMATURE GRANULOCYTE % (test 0.3 % 0.0-2.0 N code = IG%) LYMPHOCYTE % (test code = LY%) 22.4 % 14-44 N MONOCYTE % (test code = MO%) 7.4 % 4-13 N EOSINOPHIL % (test code = EO%) 0.9 % 0-6 N BASOPHIL % (test code = BA%) 0.5 % 0-2 N NUCLEATED RBC % (test code = 0.0 % 0-1.0 N NRBC%) NEUTROPHIL # (test code = NT#) 4.38 K/mm3 2.0-7.6 N IMMATURE GRANULOCYTE # (test 0.02 x10 3/uL 0-0.03 N code = IG#) LYMPHOCYTE # (test code = LY#) 1.43 K/mm3 1.0-3.8 N MONOCYTE # (test code = MO#) 0.47 K/mm3 0.1-0.8 N EOSINOPHIL # (test code = EO#) 0.06 K/mm3 0.0-0.2 N BASOPHIL # (test code = BA#) 0.03 K/mm3 0.0-0.2 N NUCLEATED RBC # (test code = 0.00 K/mm3 0.0-0.1 N NRBC#) GLUCOSE BEDSIDE [id number] 11:05:00 Test Item Value Reference Range Interpretation Comments GLUCOSE BEDSIDE TESTING (test code 136 MG/DL 60-99 H = GLUBED) GLUCOSE BEDSIDE [id number] 07:34:00 Test Item Value Reference Range Interpretation Comments GLUCOSE BEDSIDE TESTING (test code 190 MG/DL 60-99 H = GLUBED) BASIC METABOLIC [id number] 07:08:00 Test Item Value Reference Range Interpretation Comments SODIUM (test code = 137 MMOL/L 137-145 N NA) POTASSIUM (test code = 3.9 MMOL/L 3.5-5.1 N K) CHLORIDE (test code = 100 MMOL/L 98-107 N CL) CARBON DIOXIDE (test 33 MMOL/L 22-30 H code = CO2) ANION GAP (test code = 8 MMOL/L 14-24 L GAP) GLUCOSE (test code = 133 MG/DL 74-106 H GLU) BLOOD UREA NITROGEN 20 MG/DL 9-20 N (test code = BUN) GLOMERULAR FILTRATION > 60 Report ing units: RATE (test code = GFR) ml/mi n/1.73 m2 (Modified MDRD Formula)Referen ce Range: > or = 6 0 ml/min/1.73 m2 CREATININE (test code 1.00 MG/DL 0.66-1.25 N = CREAT) CALCIUM (test code = 8.9 MG/DL 8.4-10.2 N CA) PROTHROMBIN [id number] 06:54:00 Test Item Value Reference Range Interpretation Comments PROTHROMBIN TIME 32.0 SECONDS 9.4-12.7 H PATIENT (test code = PTP) INTERNATIONAL NORMAL 2.8 0.86-1.14 H The INR is to be RATIO (test code = used only for INR) monitoring oral anticoagulantth erap y. INDICATION I NR VALUE ---- ---- ---- -------1. Prophylaxis, de ep venous thrombos is, including high risk surgery. 2.0 - 3.0 2. Prophylaxis, deep venous thrombosis, hip surgery, treatm ent for deep venous thrombosis or pulmonary prevention of systemic emboli sm in patients wit h valvular heart disease, atrial fibrillation, tissue heart va lve, or acute myocar dial infarction. 2. 0 - 3.0 3. Netezza Developer al prosthesis hear t valves, recurre nt systemic emboli sm. 3.0 - 4.5 GLUCOSE BEDSIDE [id number] 19:19:00 Test Item Value Reference Range Interpretation Comments GLUCOSE BEDSIDE TESTING (test code 120 MG/DL 60-99 H = GLUBED) GLUCOSE BEDSIDE [id number] 15:22:00 Test Item Value Reference Range Interpretation Comments GLUCOSE BEDSIDE TESTING (test code = 83 MG/DL 60-99 N GLUBED) GLUCOSE BEDSIDE [id number] 10:49:00 Test Item Value Reference Range Interpretation Comments GLUCOSE BEDSIDE TESTING (test code 159 MG/DL 60-99 H = GLUBED) [id number] 08:04:00 Test Item Value Reference Range Interpretation Comments MAGNESIUM (test code = MAG) 2.1 MG/DL 1.6-2.3 N COMPREHENSIVE METABOLIC [id number] 07:13:00 Test Item Value Reference Range Interpretation Comments SODIUM (test code 137 MMOL/L 137-145 N = NA) POTASSIUM (test 3.8 MMOL/L 3.5-5.1 N code = K) CHLORIDE (test 101 MMOL/L 98-107 N code = CL) CARBON DIOXIDE 32 MMOL/L 22-30 H (test code = CO2) ANION GAP (test 8 MMOL/L 14-24 L code = GAP) GLUCOSE (test 143 MG/DL 74-106 H code = GLU) BLOOD UREA 19 MG/DL 9-20 NITROGEN (test code = BUN) GLOMERULAR > 60 Reporting units : FILTRATION RATE ml/min/1.73 m2 (Modified (test code = GFR) MDRD Formu la)Reference Range: > or = 6 0 ml/min/1.73 m2 CREATININE (test 0.90 MG/DL 0.66-1.25 code = CREAT) TOTAL PROTEIN 6.5 G/DL 6.2-7.6 N [facility] Clinical Diagnostic (test code = has made us bernadette re of PROT) newinformation regarding the potential i nterference ofEltrombopag ( a bone marrow stimulan t used to treatthrombocyt onmenia and aplastic anemia ) with specific assays on the Desktimes 5600 of which Total Protein is one of thoseassays per formed in our lab.Interfe rence testing perform ed at Orth[facility] determined that Eltrombopag does interfere with Vitros Total Protein asfollowsEltrom bopag Interference fo r Vitros Product Total Protein:======= Eltrombopag Max Observed Av g. BiasConcentrati on Concentration Concentration== ==== 2.5 mg/dl 6.0 g/dl +0.41 +0.34 3.5 mg/dl 6.0 g /dl +0.50 +0.45 5 mg/dl 6.0 g/dl +0.73 +0.65 2.5 mg/dl 8.0 g/dl +0.44 +0.4 1 3.5 mg/dl 8.0 g/dl +0.55 +0.52 5 mg/dl 8.0 g/dl +0.86 +0.77 ALBUMIN (test 3.7 G/DL 3.5-5.0 N code = ALB) CALCIUM (test 8.9 MG/DL 8.4-10.2 N code = CA) BILIRUBIN TOTAL 1.0 MG/DL 0.2-1.3 N Eltrombopag Interference (test code = for Vitros Prod uct TBil, BILT) BuBc: Assa y Eltrombopag Sophia lyte/ Max Observed Avg. B ias Concentration C oncentration Concentration== ====TBil 7mg/dl TBil/ 1. 2mg/dl +0.23mg.dl +0.2 0mg/dlBuBc 3.5mg/dl Bu/0.8 mg/dl +0.25mg/dl +0. 24mg/dlBuBc 7 mg/dl Bu/14.2 mg/dl +0.38mg/dl +0.2 5mg/dlBuBc 5mg/dl Bc/0mg/d l +0.25mg/dl +0.15mg/dlBuBc 3.5mg/dl Bc/2.8mg/dl +0. 25mg/dl +0.23mg/dl SGOT/AST (test 23 UNITS/L 17-59 N code = AST) SGPT/ALT (test 13 UNITS/L 0-49 N code = ALT) ALKALINE 80 UNITS/L 38-126 N PHOSPHATASE (test code = ALKP) LIPID PROFILE (CORONARY RISK)2021-12-02 07:13:00 Test Item Value Reference Range Interpretation Comments TRIGLYCERIDES (test 67 MG/DL 150-199 L TRIGLYCE RIDES code = TRIG) REFERENCE RANGE:Normal: < 150 mg/dLBorderline High: 150-199 mg/dLHi gh: 200-499 mg/dLVe ry High: >=500 mg/ dL CHOLESTEROL (test code 109 MG/DL <200 = CHOL) HDL CHOLESTEROL (test 39 MG/DL 40-59 L code = HDL) LIPOPROTEIN LDL (test 51 MG/DL 0-99 N OPTIM AL.........<100 code = LDL) mg/dLNEAR OPTIMAL/ABOVE OPTIMAL........ .100-12 9 mg/dL BORDERL INE HIGH.........13 0-159 mg/dL HIGH.........16 0-189 mg/dL VERY HIGH.........>/ = 190 mg/dL GLUCOSE BEDSIDE [id number] 07:04:00 Test Item Value Reference Range Interpretation Comments GLUCOSE BEDSIDE TESTING (test code 158 MG/DL 60-99 H = GLUBED) GLYCOSYLATED HEMOGLOBIN [id number] 06:57:00 Test Item Value Reference Range Interpretation Comments GLYCOSYLATED 7.0 % 4.8-5.9 H Any condition t hat HEMOGLOBIN (HA1C) shortens e rythocyte (test code = survival or dec reasesmean GLYHGB) erythrocyte age (e.g., recovery from a cute blood loss,hemolytic anemia) will falsely lo wer HGBA1c resultsregardle ss of the method used. HG BA1c results from [facility] HbSS, HbCC, and HbSc must be interpreted with cautiongiven th e pathological pr ocesses, including anemia,increase d red cell turnover, trans fusion requirements, thatadversely i mpact HGBA1c as a mar ker of long-term glycemiccontrol . Alternative for ms of testing such as fructosaminesho uld be considered for these patients. MEAN BLOOD GLUCOSE 154 MG/DL 70-110 H (test code = MBG) PROTHROMBIN [id number] 06:39:00 Test Item Value Reference Range Interpretation Comments PROTHROMBIN TIME 33.1 SECONDS 9.4-12.7 H PATIENT (test code = PTP) INTERNATIONAL NORMAL 2.9 0.86-1.14 H The INR is to be RATIO (test code = used only for INR) monitoring oral anticoagulantth erap y. INDICATION I NR VALUE ---- ---- ---- -------1. Prophylaxis, de ep venous thrombos is, including high risk surgery. 2.0 - 3.0 2. Prophylaxis, deep venous thrombosis, hip surgery, treatm ent for deep venous thrombosis or pulmonary prevention of systemic emboli sm in patients wit h valvular heart disease, atrial fibrillation, tissue heart va lve, or acute myocar dial infarction. 2.0 - 3.0 3. Netezza Developer al prosthesis hear t valves, recurre nt systemic emboli sm. 3.0 - 4.5 CBC W/AUTO [id number] 06:31:00 Test Item Value Reference Range Interpretation Comments WHITE BLOOD CELL (test code = 8.8 K/MM3 3.8-9.8 N WBC) RED BLOOD CELL (test code = 4.27 M/MM3 3.95-5.67 N RBC) HEMOGLOBIN (test code = HGB) 12.9 G/DL 12.4-16.7 N HEMATOCRIT (test code = HCT) 40.7 % 35.9-49.5 N MEAN CELL VOLUME (test code = 95 fL 81.7-96.1 N MCV) MEAN CELL HGB (test code = MCH) 30.2 pg 27.6-33.2 N MEAN CELL HGB CONCETRATION 31.7 % 32.9-35.5 L (test code = MCHC) RED CELL DISTRIBUTION WIDTH 14.5 % 12.1-15.2 N (test code = RDW) PLATELET COUNT (test code = 109 K/MM3 129-368 L PLT) MEAN PLATELET VOLUME (test code 12.3 fl 7.4-10.4 H = MPV) NEUTROPHIL % (test code = NT%) 73.3 % 43-75 N IMMATURE GRANULOCYTE % (test 0.2 % 0.0-2.0 N code = IG%) LYMPHOCYTE % (test code = LY%) 17.5 % 14-44 N MONOCYTE % (test code = MO%) 7.8 % 4-13 N EOSINOPHIL % (test code = EO%) 0.7 % 0-6 N BASOPHIL % (test code = BA%) 0.5 % 0-2 N NUCLEATED RBC % (test code = 0.0 % 0-1.0 N NRBC%) NEUTROPHIL # (test code = NT#) 6.46 K/mm3 2.0-7.6 N IMMATURE GRANULOCYTE # (test 0.02 x10 3/uL 0-0.03 N code = IG#) LYMPHOCYTE # (test code = LY#) 1.54 K/mm3 1.0-3.8 N MONOCYTE # (test code = MO#) 0.69 K/mm3 0.1-0.8 N EOSINOPHIL # (test code = EO#) 0.06 K/mm3 0.0-0.2 N BASOPHIL # (test code = BA#) 0.04 K/mm3 0.0-0.2 N NUCLEATED RBC # (test code = 0.00 K/mm3 0.0-0.1 N NRBC#) GLUCOSE BEDSIDE [id number] 21:28:00 Test Item Value Reference Range Interpretation Comments GLUCOSE BEDSIDE TESTING (test code 148 MG/DL 60-99 H = GLUBED) [id number] 19:35:00 Test Item Value Reference Range Interpretation Comments TROPONIN-I (test code = TROPI) 0.055 NG/ML 0.012-0.033 H GLUCOSE BEDSIDE [id number] 17:21:00 Test Item Value Reference Range Interpretation Comments GLUCOSE BEDSIDE TESTING (test code 194 MG/DL 60-99 H = GLUBED) GLUCOSE BEDSIDE [id number] 16:28:00 Test Item Value Reference Range Interpretation Comments GLUCOSE BEDSIDE TESTING (test code 205 MG/DL 60-99 H = GLUBED) LIPOPROTEIN LDL [id number] 15:19:00 Test Item Value Reference Range Interpretation Comments LIPOPROTEIN LDL DIRECT 55 mg/dL 100-129 L ===== (test code = LDLDIR) ======= ==Refe rence Interval: mg/dL mmol/L--------- ------ ------ ------ --Optimal <100 <2.6Near/above optimal 100-129 2.6-3.3Borderli ne High 130-159 3.4-4.1High 160 -189 4.1-4.9Very Hig h >=190 >=4.9==== ===== This LDL result is a direct measurement.=== ====== [id number] 15:19:00 Test Item Value Reference Range Interpretation Comments TROPONIN-I (test code = TROPI) 0.050 NG/ML 0.012-0.033 H PROTHROMBIN [id number] 15:04:00 Test Item Value Reference Range Interpretation Comments PROTHROMBIN TIME 29.7 SECONDS 9.4-12.7 H PATIENT (test code = PTP) INTERNATIONAL NORMAL 2.6 0.86-1.14 H The INR is to be RATIO (test code = used only for INR) monitoring oral anticoagulantth erap y. INDICATION I NR VALUE ---- ---- ---- -------1. Prophylaxis, de ep venous thrombos is, including high risk surgery. 2.0 - 3.0 2. Prophylaxis, deep venous thrombosis, hip surgery, treatm ent for deep venous thrombosis or pulmonary prevention of systemic emboli sm in patients wit h valvular heart disease, atrial fibrillation, tissue heart va lve, or acute myocar dial infarction. 2.0 - 3.0 3. Netez[employer] Developer al prosthesis hear t valves, recurre nt systemic emboli sm. 3.0 - 4.5 BASIC METABOLIC [id number] 12:09:00 Test Item Value Reference Range Interpretation Comments SODIUM (test code = 139 MMOL/L 137-145 N NA) POTASSIUM (test code = 3.8 MMOL/L 3.5-5.1 N K) CHLORIDE (test code = 102 MMOL/L 98-107 N CL) CARBON DIOXIDE (test 29 MMOL/L 22-30 N code = CO2) GLUCOSE (test code = 141 MG/DL 74-106 H GLU) BLOOD UREA NITROGEN 24 MG/DL 9-20 H (test code = BUN) GLOMERULAR FILTRATION > 60 Report ing units: RATE (test code = GFR) ml/mi n/1.73 m2 (Modified MDRD Formula)Referen ce Range: > or = 6 0 ml/min/1.73 m2 CREATININE (test code 1.10 MG/DL 0.66-1.25 N = CREAT) CALCIUM (test code = 9.4 MG/DL 8.4-10.2 N CA) [id number] 12:09:00 Test Item Value Reference Range Interpretation Comments TROPONIN-I (test code = TROPI) 0.035 NG/ML 0.012-0.033 H CBC W/O [id number] 11:23:00 Test Item Value Reference Range Interpretation Comments WHITE BLOOD CELL (test code = 8.1 K/MM3 3.8-9.8 N WBC) RED BLOOD CELL (test code = 4.69 M/MM3 3.95-5.67 N RBC) HEMOGLOBIN (test code = HGB) 14.0 G/DL 12.4-16.7 N HEMATOCRIT (test code = HCT) 44.2 % 35.9-49.5 N MEAN CELL VOLUME (test code = 94 fL 81.7-96.1 N MCV) MEAN CELL HGB (test code = MCH) 29.9 pg 27.6-33.2 N MEAN CELL HGB CONCETRATION 31.7 % 32.9-35.5 L (test code = MCHC) RED CELL DISTRIBUTION WIDTH 14.4 % 12.1-15.2 N (test code = RDW) PLATELET COUNT (test code = 126 K/MM3 129-368 L PLT) NEUTROPHIL # (test code = NT#) 5.33 K/mm3 2.0-7.6 N IMMATURE GRANULOCYTE # (test 0.02 x10 3/uL 0-0.03 N code = IG#) LYMPHOCYTE # (test code = LY#) 2.16 K/mm3 1.0-3.8 N MONOCYTE # (test code = MO#) 0.56 K/mm3 0.1-0.8 N EOSINOPHIL # (test code = EO#) 0.04 K/mm3 0.0-0.2 N BASOPHIL # (test code = BA#) 0.03 K/mm3 0.0-0.2 N NUCLEATED RBC # (test code = 0.00 K/mm3 0.0-0.1 N NRBC#) Notes Date/Time Note Provider Source 2022-06-08 17:37:00-00:00 [id number] [address] PATIENT NAME: JENNIFER RODGERS JR ADMIT DATE: 06/08/22 ACCOUNT NO: [id number] ROOM NO: AGE: 81 REPORT TYPE: CARDIAC CATHETERIZATION REPORT SEX: M ADMITTING PHYSICIAN: ATTENDING PHYSICIAN:Stuart Motley MD PROCEDURE DATE: 06/08/2022 PROCEDURE: Non-thoracotomy biventricular pacing AICD generator change. PREOPERATIVE DIAGNOSES: 1. Chronic systolic heart failure. 2. Biventricular pacing AICD elective replacemen t. POSTOPERATIVE DIAGNOSES: 1. Chronic systolic heart failure. 2. Biventricular pacing AICD elective replacemen t. SURGEON: Stuart Motley M.D. LIABILITY CLAIMS ADJUSTER: None. ANESTHESIA: Local anesthesia with 1% lidocaine a nd moderate sedation. PROCEDURE IN DETAIL: After informed consent was obtained explaining to the patient risks, benefits and alternatives, the patient was brought to the cardiac catheterization lab in the fasting postabsorptiv e state. He was prepped and draped in sterile fashion. Local anesthesia was applied over the existing pocket with 1% lidocaine. Access to the pocket w as obtained with sharp and blunt dissection utilizing e lectrocautery. The generator was dissected free and removed. The 0 Ethibond stitch securing the device was removed. The pocket was flushed with antibiotic-containing solution. The leads were disconnected from the existing generator and connected to the new generator. The pocket was flushed with antibiotic-containing solution agai n. Frank was applied to the pocket. A device was placed in a TYRX sleeve. Th e device and sleeve were placed in the pocket and secured in the pocket w ith 0 Ethibond suture. The pocket was closed in 3 layers using 2-0 Vicryl for subcutaneous layers and 4-0 Vicryl for the skin. Interrupted Prolene sutures were utilized to secure the lateral edges of the device as there was significant scar tissue from previous generator changes. IMPLANT DATA: 1. Pulse generator [employer] model G125, serial #[id number]. 2. Right atrial lead Guidant model 4136, serial #[id number]. 3. Right ventricular lead Guidant model 0154, se rial #[id number]. 4. Left ventricular lead Guidant model 4543, ser ial #[id number]. Explanted generator [employer] model N161 , serial #[id number] implant date PATIENT NAME: JENNIFER RODGERS JR ACCOUNT #: Z [id number] 09/12/2013, explant 06/08/2022. Stimulation threshold data: Right atrium, thresh old 0.9 volts at 0.4 milliseconds, impedance 606 ohms, current 1.5 mi lliamps. Right ventricle, threshold 1 volt at 0.4 milliseconds, impedance 421 ohms, shock impedance 47 ohms, current 2.4 milliamps. Left ventricle, threshold 1.2 volts at 0.8 ashely seconds, impedance 483 ohms, current 2.5 milliamps (LV tip to can). CONCLUSION: Successful non-thoracotomy biventric ular pacing AICD generator change. ESTIMATED BLOOD LOSS: 3 mL. COMPLICATIONS: No complications. Dictated By: Stuart Motley MD Date Dictated: 06/08/2022 17:37:22 Date Transcribed: 06/08/2022 19:29:01 [facility] Receipt ID: [id number] Authenticated by Stuart Motley MD On 06/14/20 04:18:56 PM at 0418 PATIENT NAME: JENNIFER RODGERS JR ACCOUNT #: Z [id number] 2022-06-08 10:32:00-00:00 [id number] [place] [address] PATIENT NAME: JENNIFER RODGERS JR ADMIT DATE: 06/08/22 ACCOUNT NO: [id number] ROOM NO: AGE: 81 REPORT TYPE: ELECTROCARDIOGRAM SEX: M ADMITTING PHYSICIAN: ATTENDING PHYSICIAN:Stuart Motley MD Order: [id number] Test Reason : AICD GEN CHANGE Test Date/Time Stamp: TueJun 08 2022 10:32:20 Blood Pressure : / mmHG Vent. Rate : 060 BPM Atrial Rate : 059 BPM P-R Int : 000 ms QRS Dur : 188 ms QT Int : 518 ms P-R-T Axes : 000 -21 120 degree s QTc Int : 518 ms AV sequential or dual chamber electronic pacemak er When compared with ECG of 15-DEC-2021 20:58, Vent. rate has decreased BY 12 BPM Confirmed by ANDRIA JUDGE ([id number]) on 06/08/2022 4:23:17 PM Referred By: Stuart Motley Confirmed by:ANDRIA GONSALES at 1623 PATIENT NAME: JENNIFER RODGERS JR 2021-12-21 09:52:00-00:00 [id number] [place] [address] PATIENT NAME: JENNIFER RODGERS JR ADMIT DATE: 12/15/21 ACCOUNT NO: [id number] ROOM NO: Z365 AGE: 81 REPORT TYPE: 360 - QUERY RESPONSE DOCUMENT SEX: M ADMITTING PHYSICIAN:Stuart Motley MD ATTENDING PHYSICIAN:Stuart Motley MD Provider Query QUERY TEXT: Condition General 360MD Query related questions should be directed to: [email or web address] BASED ON YOUR CLINICAL JUDGEMENT CAN YOU SPECIFY THE KNOWN OR SUSPECTED CONDITION THAT REPRESENTS THE CLIN ICAL INDICATORS BELOW? (I.E. ACUTE / CHRONIC SYSTOLI C / DIASTOLIC HEART FAILURE, HYPERTENSION HEART DIS EASE WITHOUT HEART FAILURE, OTHER DISEASE OF THE CIR CULATORY SYSTEM, RESULTS OF NO CLINICAL SIGNIFICANCE OR OTHER MORE APPROPRIATE DIAGNOSIS) The patient's Clinical Indicators include: 12/16 CARDIOLOGY PROG NOTE - Ischemic cardiomyopa thy / HTN 12/16 Transesophageal Echocardiogram The estimate d ejection fraction is 25-29%. 12/15 IMAGING CXR FINDINGS: The heart size is pro minent even more so than previously seen with moderate degre e of cardiomegaly. IMPRESSION: Small degree of evolv ing fluid overload 12/17 IMAGING CXR IMPRESSION: Stable mild fluid o verload 12/16 MEDICATION ADMINISTRATION CARVEDILOL 25 MG TABLET - Dose: 25.0 - Ordered Route: PO 12/16 MEDICATION ADMINISTRATION Furosemide 40 mg/ 4 mL Inj - Dose: 40.0 - Ordered Route: IV Options provided: -- Respond - Create new note now -- Dismiss - Not applicable / Not valid -- Dismiss - Clinically unable to determine / Un known -- Assign to another provider QUERY RESPONSE: Acute on chronic systolic heart failure. Query created by: Jeniffer Irby on 12/17/2021 8:46 AM at 0952 PATIENT NAME: JENNIFER RODGERS JR ACCOUNT #: Z [id number] 2021-12-17 14:15:00-00:00 [id number] [place] [address] PATIENT NAME: JENNIFER RODGERS JR ADMIT DATE: 12/15/21 ACCOUNT NO: [id number] ROOM NO: [facility] AGE: 81 REPORT TYPE: DISCHARGE SUMMARY REPORT SEX: M ADMITTING PHYSICIAN:Stuart Motley MD ATTENDING PHYSICIAN:Stuart Motley MD ADMISSION DATE: 12/15/2021 DISCHARGE DATE: 12/17/2021 DISCHARGE DIAGNOSES: 1. Ischemic cardiomyopathy. 2. Ventricular tachycardia. 3. Multiple AICD shocks. HOSPITAL COURSE: This is an 81-year-old male with a nonischemic cardiomyopathy, ventricular tachycardia, and multiple AI CD shocks despite medical therapy, was admitted for ventricular tachycardia ablation. H e underwent an uncomplicated ablation and substrate modification. He tolerate d the procedure well. He was admitted and diuresed with intravenous Lasix. He is stable on the day of discharge. DISCHARGE MEDICATIONS: Per the medical reconcili ation report. DISCHARGE ACTIVITY: As tolerated. DISCHARGE DIET: Low fat, low cholesterol, 2 g so dium. FOLLOWUP: The patient is to follow up in [facility]. Dictated By: Stuart Motley MD WT: DS:JORDYN/OSORIO/BRIDGETTE Conf#: [id number]/DID#: [id number] Authenticated by Stuart Motley MD On 12/25/19 06:15:06 AM at 0615 PATIENT NAME: JENNIFER RODGERS JR ACCOUNT #: Z [id number] 2021-12-17 13:38:00-00:00 [facility] ([facility] Cardiology Progress Note REPORT#:[id number] REPORT STATUS: Signed DATE:12/17/21 TIME: 1338 PATIENT: JENNIFER RODGERS JR UNIT #: [id number] ROOM/BED: [address] : 38 AGE: 81 SEX: M ATTEND: Gabriel Motley MD ADM AUTHOR: Stuart Motley MD * ALL edits or amendments must be made on the [employer] document * Subjective Chief complaint: VTACH Patient reports: No: chest pain, palpitations, shortness of breat h. Objective General VS/I O: 24 hour I O ending at 0700: 12/17 0700 12/16 1900 Intake Total 450 250 Output Total 875 1400 Balance -425 -1150 Intake, Oral 450 250 Number 1 Bowel Movements Output, Urine 875 1400 Vital Signs: Date Time Temp Pulse Resp B/P B/P Pulse O2 O2 F low FiO2 Mean Ox Delivery Rate 12/17 1145 99.1 60 18 113/68 83.0 93 Nasal cannula 12/17 0654 98.8 59 18 111/66 81.2 96 Room air 12/17 0458 98.2 59 18 112/67 81.8 96 12/17 0014 97.2 61 18 104/62 76.4 97 12/16 2135 60 24 109/61 76.8 95 12/16 2000 Nasal 2 cannula 12/16 1857 98.4 60 18 112/64 79.9 96 12/16 1544 99.5 59 17 109/60 76.2 94 Nasal cannula PATIENT WEIGHT: Weight (lb): 233 Weight (oz): 11.04 Weight (kg): 106.000 Medications: Active Meds + DC'd Last 24 Hrs Tamsulosin HCl (FLOMAX) 0.4 MG BEDTIME PO Aspirin (CHILDREN'S ASPIRIN) 81 MG DAILY PO Fluticasone Propionate (FLONASE) 1 SPRAY BID MARY AL (CKD) Lisinopril (PRINIVIL) 20 MG DAILY PO Spironolactone (ALDACTONE) 25 MG QAM PO Warfarin Sodium (COUMADIN) 5 MG DAILY PO Furosemide (LASIX) 40 MG BID@0900,1700 IV Amiodarone HCl (CORDARONE) 200 MG BID PO Atorvastatin Calcium (LIPITOR) 10 MG BEDTIME PO Carvedilol (COREG) 25 MG BID PO Mupirocin (BACTROBAN NASAL - ADULT ICU) 1 APPLIC BID NASAL Glimepiride (AmaryL) 2 MG C BK PO Physical Exam General appearance: alert, awake, oriented Head/Eyes: abnl Conjunctiva/ sclera (Lft subconjunctival hemorrhage), atraumatic, normocephalic ENT: moist mucosal membranes Neck: no JVD Cardiovascular: CV assessment: regular rate and rhythm Respiratory: clear to auscultation, no distress Lower extremity: LE assessment: no edema Musculoskeletal: full range of motion Neuro/CREATIVE PRODUCER: alert, oriented X 3, CN II-XII intact Skin: dry, intact Wound/incision: Location: Bilateral groin Site condition: wound clean dry Psychiatry: normal affect, normal judgment/insig ht, normal mood Results Findings/Data: Laboratory Tests 12/17 752 Chemistry Sodium (137 - 145 MMOL/L) 138 Potassium (3.5 - 5.1 MMOL/L) 4.2 Chloride (98 - 107 MMOL/L) 99 Carbon Dioxide (22 - 30 MMOL/L) 33 H BUN (9 - 20 MG/DL) 31 H Creatinine (0.66 - 1.25 MG/DL) 1.10 Glomerular Filtr Rate > 60 Glucose (74 - 106 MG/DL) 129 H Calcium (8.4 - 10.2 MG/DL) 8.6 Laboratory Tests 12/17 752 Coagulation INR (0.86 - 1.14) 1.9 H PT Patient/Control Mix (9.4 - 12.7 SECONDS) 21. 7 H Laboratory Tests 12/17 752 Hematology WBC (3.8 - 9.8 K/MM3) 7.4 RBC (3.95 - 5.67 M/MM3) 4.17 Hgb (12.4 - 16.7 G/DL) 12.6 Hct (35.9 - 49.5 %) 40.6 MCV (81.7 - 96.1 fL) 97 H MCH (27.6 - 33.2 pg) 30.2 MCHC (32.9 - 35.5 %) 31.0 L RDW (12.1 - 15.2 %) 14.3 Plt Count (129 - 368 K/MM3) 109 L MPV (7.4 - 10.4 fl) 12.1 H Neut % (Auto) (43 - 75 %) 69.9 Lymph % (Auto) (14 - 44 %) 20.9 [place] % (Auto) (4 - 13 %) 7.9 Eos % (Auto) (0 - 6 %) 0.4 Baso % (Auto) (0 - 2 %) 0.5 Neut # (Auto) (2.0 - 7.6 K/mm3) 5.16 Lymph # (Auto) (1.0 - 3.8 K/mm3) 1.54 [place] # (Auto) (0.1 - 0.8 K/mm3) 0.58 Eos # (Auto) (0.0 - 0.2 K/mm3) 0.03 Baso # (Auto) (0.0 - 0.2 K/mm3) 0.04 Immature Gran % (0.0 - 2.0 %) 0.4 Nucleated RBC % (0 - 1.0 %) 0.0 Nucleated RBCs # (Man) (0.0 - 0.1 K/mm3) 0.00 Radiology data: Recent Impressions: RADIOLOGY - XR CHEST 1V 12/17 0725 Report Impression - Status: SIGNED Entered: 12/17/2021 08 IMPRESSION: Stable mild fluid overload Impression By: Coco Tabares MD Diagnosis, Assessment Plan Free Text DxA P Notes Free Text DxA P Notes: IMP: Ischemic cardiomyopathy CAD - stable HTN PAFIB AICD - [employer] ARCHITECT INTERN-D. PLAN: Transfer to tele Diuresis with IV lasix Ambulate with assist. at 1739 RPT #:[id number] END OF REPORT 2021-12-17 08:12:00-00:00 [id number] [address] PATIENT NAME: JENNIFER RODGERS ADMIT DATE: 12/15/21 ACCOUNT NO: [id number] ROOM NO: [facility] AGE: 81 REPORT TYPE: 360 - QUERY RESPONSE DOCUMENT SEX: M ADMITTING PHYSICIAN:Stuart Motley MD ATTENDING PHYSICIAN:Stuart Motley MD Provider Query QUERY TEXT: Condition General 360MD Query related questions should be directed to: [email or web address] BASED ON YOUR CLINICAL JUDGEMENT CAN YOU SPECIFY THE KNOWN OR SUSPECTED CONDITION THAT REPRESENTS THE CLIN ICAL INDICATORS BELOW? (I.E. MORBID (SEVERE) OBESITY DUE TO EXCESS CALORIES, EXOGENOUS OBESITY, MORBID (SEV ERE) OBESITY WITH ALVEOLAR HYPOVENTILATION, DRUG IND UCED OBESITY, OTHER OBESITY, OVERWEIGHT, OR OTHER AP PROPRIATE DIAGNOSIS) The patient's Clinical Indicators include: 12/15 EBCD ASSESSMENT HEIGHT 5' 2" WEIGHT 233 12/15 EBCD ASSESSMENT BMI 42.7 Options provided: -- Respond - Create new note now -- Dismiss - Not applicable / Not valid -- Dismiss - Clinically unable to determine / Un known -- Assign to another provider QUERY RESPONSE: Overweight Query created by: Jeniffer Irby on 12/16/2021 7:27 AM at 0812 PATIENT NAME: JENNIFER RODGERS JR ACCOUNT #: Z [id number] 2021-12-16 08:29:00-00:00 [id number] [place] [address] PATIENT NAME: JENNIFER RODGERS JR ADMIT DATE: 12/15/21 ACCOUNT NO: [id number] ROOM NO: Z.I14 AGE: 81 REPORT TYPE: eTRANSESOPHAGEAL ECHO SEX: M ADMITTING PHYSICIAN:Stuart Motley MD ATTENDING PHYSICIAN:Stuart Motley MD *[facility]* [address] [place] [id number] Transesophageal Echocardiogram Patient: Jennifer Rodgers Study Date: 12/15/2021 BP: Location: [facility] URN: [id number] : 1940 Age: 81 Height: / Gender: M Weight: / BMI/BSA: / *Ordering Physician: * Stuart Motley MD *Interpreting Physician: * Stuart Motley MD *Cafeteria Server: * Cain Olivas BS, [facility], RVS Indications: Atrial Fibrillation. Study data: Consent: The risks, benefits, and al ternatives to the procedure were explained to the patient and info rmed consent was obtained. Procedure: Initial setup: The patient was brought to the laboratory in the fasting state.Intravenous acce ss was obtained. Surface ECG leads and pulse oximetric signals were monit ored. Sedation. Moderate sedation was administered by cardiology staff. T ransesophageal echocardiography was performed. Topical anesthes ia was obtained using viscous lidocaine. A transesophageal probe (SN: [id number]) was inserted by the attending non destructive testing supervisor without difficulty. I mages were obtained using a SnappCloud cardiac ultrasound machine. Image rolando lity was adequate. Complete 2D, complete spectral Doppler, and colo r Doppler. Location: EP laboratory. Patient status: Outpatient. Maria L murcia room number: Sanitation Worker Room 3. Study status: Scheduled. Study compl etion: The patient tolerated the procedure well. There were no comp lications. Findings PATIENT NAME: JENNIFER RODGERS JR ACCOUNT #: Z [id number] [address] PATIENT NAME: JENNIFER RODGERS JR ADMIT DATE: 12/15/21 ACCOUNT NO: [id number] ROOM NO: Z.I14 AGE: 81 REPORT TYPE: eTRANSESOPHAGEAL ECHO SEX: M ADMITTING PHYSICIAN:Stuart Motley MD ATTENDING PHYSICIAN:Stuart Motley MD Left ventricle: Systolic function is moderately to severely reduced. The estimated ejection fraction is 25-29%. Right ventricle: The cavity size is normal. Syst olic function is normal. Aorta: The aorta is normal, normal size, and non -diseased. Aortic valve: The leaflets are mildly thickened. There is mild regurgitation. Mitral valve: The leaflets are mildly thickened. There is mild regurgitation. Tricuspid valve: The leaflets are mildly thicken ed. There is tricuspid prolapse. There is mild regurgitation. Pulmonic valve: The valve is structurally normal . There is no evidence of a vegetation. There is no regurgitat ion. Pericardium: There is no pericardial effusion. Conclusions Summary: 1. Left ventricle: Systolic function is moderate ly to severely reduced. The estimated ejection fraction is 25-29%. 2. Tricuspid valve: There is tricuspid prolapse. Prepared and electronically signed by Stuart Motley MD 12/16/2021 08:29 at 0829 PATIENT NAME: JENNIFER RODGERS JR ACCOUNT #: Z [id number] 2021-12-16 07:14:00-00:00 [id number] [place] [address] PATIENT NAME: JENNIFER RODGERS JR ADMIT DATE: 12/15/21 ACCOUNT NO: [id number] ROOM NO: Z.I14 AGE: 81 REPORT TYPE: CARDIAC CATHETERIZATION REPORT SEX: M ADMITTING PHYSICIAN:Stuart Motley MD ATTENDING PHYSICIAN:Stuart Motley MD PROCEDURE DATE: 12/15/2021 PROCEDURES: 1. Comprehensive electrophysiology study with ve ntricular ablation. 2. Intracardiac echocardiography. PREOPERATIVE DIAGNOSES: 1. Ischemic cardiomyopathy. 2. Coronary artery disease. 3. Old myocardial infarction. 4. Status post [employer] biventricular p acing AICD. 5. Ventricular tachycardia. This has resulted in recurrent AICD shocks. POSTPROCEDURE DIAGNOSES: 1. Ischemic cardiomyopathy. 2. Coronary artery disease. 3. Old myocardial infarction. 4. Status post [employer] biventricular p acing AICD. 5. Ventricular tachycardia. This has resulted in recurrent AICD shocks. ANESTHESIA: General endotracheal anesthesia. SCUBA DIVER: Stuart Motley MD LIABILITY CLAIMS ADJUSTER: None. PROCEDURE DETAILS: After informed consent was ob tained explaining to the patient the risks, benefits, and alternatives, t he patient was brought to the cardiac catheterization lab in the fasting postabsorptive state. He was prepped and draped in sterile fashion. Local anesthesia was applied over both femoral veins with 1% lidocaine. Access to the veins was obtained using modified Seldinger technique with althea ropuncture kit and ultrasound guidance. An 8-Bolivian sheath was placed in the right femoral vein. A 6 and 9-Bolivian sheaths were placed in left femoral vein. The sheaths were as pirated and flushed and connected to heparinized saline infusion. An int racardiac echocardiography catheter was advanced via the 9-Bolivian sheath an d placed in the right atrium. Intracardiac echocardiography was performed to v isualize the left atrium and interatrial septum. A 5-Bolivian Cournand catheter was advanced via the 6-Bolivian sheath and placed in the right ventricle. A Perc lose suture was placed in the right femoral vein in a preclose fashion. The 8- Bolivian sheath in the right femoral vein was exchanged for a VersaCr oss sheath over the VersaCross wire. A transseptal puncture was per formed with the VersaCross sheath after visualizing PATIENT NAME: JENNIFER RODGERS JR ACCOUNT #: Z [id number] the interatrial septum and a ppropriate placement in the posterior septal region. The VersaCross wire was advanced into the left atrium. The VersaCross sheath was advanced over the septum. The VersaCross wir e was exchanged for 0.32 J-wire, which was advanced in the left a trium. A deflectable Channing sheath was then advanced over the wire into the left atrium . The dilator and wire were removed. The sheath was aspirated and flushed an d connected to heparinized saline infusion. A PentaRay catheter was then pr epped and after adequate anticoagulation, a PentaRay catheter was advance d into the left atrium. The PentaRay catheter was then advanced into the left ventricle. A voltage map was then created of the left ventricle, fractionated electrograms and late potentials were noted and marked on the map. The PentaRay catheter was then removed. An STSF ThermoCool ablation catheter was then prepped and advanced via the Channing sheath into the left ventricle. After targeting the appropriate electrograms, multiple RF applications were made in the left ventricle eliminating fractionated electrograms. FINDINGS: There was a large anteroseptal scar wi th a moderate-sized posterior scar and a small apical scar. Primary targets we re in the border zone of the anteroseptal and posterior scar. At the end of the procedure, all catheters were removed. The sheaths were aspirated and flushed. The right femoral vein an d Perclose sutures were secured. There remains some oozing at th e right femoral vein. The left femoral venous sheaths were aspirated, removed and hemos tasis was achieved with an 0 Ethibond suture over both femoral veins. The pat ient tolerated the procedure well with no complications. CONCLUSION: Successful ventr icular tachycardia ablation/substrate modification. ESTIMATED BLOOD LOSS: 10 mL. COMPLICATIONS: No complications. Dictated By: Stuart Motley MD WT: CATH:CLYDE/PEPSAMI/NTS Conf#: [id number]#: [id number] cc: Andria Judge MD Authenticated by Stuart Motley MD On 12/17/19 08:31:21 AM at 0831 PATIENT NAME: JENNIFER RODGERS ACCOUNT #: [id number] 2021-12-16 06:16:00-00:00 [facility] ([facility] Cardiology Progress Note REPORT#:[id number] REPORT STATUS: Signed DATE:12/16/21 TIME: 615 PATIENT: JENNIFER RODGERS JR UNIT #: [id number] ROOM/BED: [address] : 38 AGE: 81 SEX: M ATTEND: Gabriel Motley MD ADM AUTHOR: Stuart Motley MD * ALL edits or amendments must be made on the Proformative/[employer] document * Subjective Chief complaint: VTACH Patient reports: No: chest pain, palpitations, shortness of breat h. Objective General VS/I O: 24 hour I O ending at 0700: 12/16 0700 12/15 1900 Intake Total Output Total Balance Patient 106 kg Weight Weight Stated/Reported Measurement Method Vital Signs: Date Time Temp Pulse Resp B/P B/P Pulse O2 O2 F low FiO2 Mean Ox Delivery Rate 12/16 0330 70 12 103/55 74 98 05/11 0315 70 16 113/54 76 98 05/11 0300 70 20 92/49 71 95 05/11 0245 71 17 103/54 76 98 05/11 0230 70 12 104/57 78 98 05/11 0215 71 15 110/58 81 97 05/11 0200 70 18 106/53 76 94 05/11 0145 70 12 116/55 79 99 05/11 0130 70 16 105/54 76 96 05/11 0115 70 20 116/56 81 95 05/11 0100 70 15 117/60 86 98 05/11 0045 70 12 118/56 80 98 05/11 0030 71 13 113/59 82 97 05/11 0015 71 11 109/57 80 97 05/11 0000 97.9 05/11 0000 71 12 110/53 76 96 05/11 0000 93 Nasal 5 40 cannula 05/10 2345 71 13 89/54 69 93 05/10 2330 71 16 109/51 74 93 05/10 2315 70 17 100/50 71 95 05/10 2300 71 11 98/58 67 92 05/10 2245 71 8 122/55 81 94 05/10 2230 71 12 105/55 77 93 05/10 2215 72 13 107/58 79 97 05/10 2200 71 12 101/52 74 94 05/10 2145 70 15 103/55 76 97 05/10 2130 70 10 103/50 71 97 05/10 2115 71 13 109/55 79 95 05/10 2100 70 23 96/52 69 97 05/10 2045 71 21 97/53 71 92 05/10 2030 70 18 98/54 74 95 12/15 2014 70 14 97/56 74 94 12/15 2008 71 20 103/55 72 96 12/15 1944 96.7 12/15 1944 Nasal 5 cannula PATIENT WEIGHT: Weight (lb): 233 Weight (oz): 11.04 Weight (kg): 106.000 Medications: Active Meds + DC'd Last 24 Hrs Lisinopril (PRINIVIL) 20 MG DAILY PO Spironolactone (ALDACTONE) 25 MG QAM PO Warfarin Sodium (COUMADIN) 5 MG DAILY PO Amiodarone HCl (CORDARONE) 200 MG BID PO Atorvastatin Calcium (LIPITOR) 10 MG BEDTIME PO Carvedilol (COREG) 25 MG BID PO Mupirocin (BACTROBAN NASAL - ADULT ICU) 1 APPLIC BID NASAL Glimepiride (AmaryL) 2 MG C BK PO Sodium Chloride (SODIUM CHLORIDE 0.9%) 100 ML .S TK-MED ONE IV (DC) Heparin Sodium/Sodium Chloride (HEPARIN 1000 UNI TS/NS 500ML) 500 ML .STK-MED ONE IV (DC) Phenylephrine HCl (VANESSA-SYNEPHRINE/NS 10MG/100ML) 100 ML .STK-MED ONE IV (DC) Sodium Chloride (SODIUM CHLORIDE 0.9%) 100 ML .S TK-MED ONE IV (DC) Vancomycin HCl (VANCOMYCIN HCL) 0 .STK-MED ONE . ROUTE (DC) Alteplase, Recombinant (CATH EFRAÍN ACTIVASE 2MG) 0 .STK-MED ONE .ROUTE (DC ) Heparin Sodium/Dextrose (HEPARIN 25,000UNITS/D5W 500ML) 500 ML .STK-MED ONE IV (DC) Lidocaine HCl (XYLOCAINE 2%) 0 .STK-MED ONE .ROU TE (DC) Benzocaine (HURRICAINE) 0 .STK-MED ONE .ROUTE (D C) Lidocaine HCl (Lidocaine 2% Viscous) 0 .STK-MED ONE .ROUTE (DC) Heparin Sodium (HEPARIN SODIUM) 0 .STK-MED ONE . ROUTE (DC) Heparin Sodium/Sodium Chloride (HEPARIN 1000 UNI TS/NS 500ML) 500 ML .STK-MED ONE IV (DC) Iopamidol (ISOVUE-300) 0 .STK-MED ONE .ROUTE (DC ) Lidocaine HCl (XYLOCAINE 1%) 0 .STK-MED ONE .RO CHONG (DC) Ephedrine Sulfate (ePHEDrine sulfate) 0 .STK-MED ONE .ROUTE (DC) Phytonadione (VITAMIN K) 10 MG NOW ONE SUBQ (DC) Etomidate (AMIDATE) 0 .STK-MED ONE .ROUTE (DC) Fentanyl Citrate (SUBLIMAZE (C-II)) 0 .STK-MED O NE .ROUTE (DC) Lidocaine HCl (XYLOCAINE 1%) 5 ML .STK-MED ONE I V (DC) Phenylephrine HCl (VANESSA-SYNEPHRINE/NS 10MG/100ML) 100 ML .STK-MED ONE IV (DC) Fentanyl Citrate (SUBLIMAZE (C-II)) 25 MCG PACU Q15MIN PRN PRN IV (DC) Hydralazine HCl (APRESOLINE) 5 MG PACU Q5MIN PRN PRN IV (DC) Hydromorphone HCl (DILAUDID) 0.5 MG PACU Q10MIN PRN PRN IV (DC) Labetalol HCl (TRANDATE, NORMODYNE) 5 MG PACU Q5 MIN PRN PRN IV (DC) Lactated Ringer's (LACTATED RINGERS) 1,000 ML PA CU IV FLUID IV (DC) Lactated Ringer's (LACTATED RINGERS) 1,000 ML ON CE ONE IV Ondansetron HCl (ZOFRAN) 4 MG PACU ONCE PRN IV (DC) Pharmacy Profile Note (INFORMATION) 1 EA ONCE ON E MISC (CAN) Meperidine HCl (Demerol 100 MG/2 ML) 25 MG PACU STAT STA IV (DC) Heparin Sodium (HEPARIN SODIUM) 0 .STK-MED ONE . ROUTE (DC) Sodium Chloride (SODIUM CHLORIDE 0.9%) 1,000 ML Q13H IV Physical Exam General appearance: alert, awake, oriented Head/Eyes: abnl Conjunctiva/ sclera (Lft subconjunctival hemorrhage), atraumatic, normocephalic ENT: moist mucosal membranes Neck: no JVD Cardiovascular: CV assessment: regular rate and rhythm Respiratory: clear to auscultation, no distress Lower extremity: LE assessment: no edema Musculoskeletal: full range of motion Neuro/CREATIVE PRODUCER: alert, oriented X 3, CN II-XII intact Skin: dry, intact Wound/incision: Location: Bilateral groin Site condition: wound clean dry Results Findings/Data: Laboratory Tests 12/16 1000 Chemistry Sodium (137 - 145 MMOL/L) 141 142 Potassium (3.5 - 5.1 MMOL/L) 3.9 3.9 Chloride (98 - 107 MMOL/L) 105 98 Carbon Dioxide (22 - 30 MMOL/L) 28 34 H Anion Gap (14 - 24 MMOL/L) 12 L 14 BUN (9 - 20 MG/DL) 27 H 33 H Creatinine (0.66 - 1.25 MG/DL) 1.00 1.40 H Glomerular Filtr Rate > 60 48 Glucose (74 - 106 MG/DL) 166 H 160 H Calcium (8.4 - 10.2 MG/DL) 8.5 10.0 Magnesium (1.6 - 2.3 MG/DL) 2.5 H Laboratory Tests 12/16 12/15 12/15 12/15 0440 1740 1706 1633 Coagulation INR (0.86 - 1.14) 2.2 H PT Patient/Control Mix (9.4 - 12.7 SECONDS) 25. 2 H Activated Coag Time (74 - 137 SEC) 303 H 321 H 345 H 12/15 12/15 12/15 12/15 1618 1550 1508 1000 Coagulation INR (0.86 - 1.14) 2.5 H APTT (26.2 - 35.4 SECONDS) 39.3 H PT Patient/Control Mix (9.4 - 12.7 SECONDS) 28 .3 H Activated Coag Time (74 - 137 SEC) 285 H 297 H 237 H Laboratory Tests 12/16 12/15 044 1000 Hematology WBC (3.8 - 9.8 K/MM3) 9.2 6.4 RBC (3.95 - 5.67 M/MM3) 4.20 4.53 Hgb (12.4 - 16.7 G/DL) 12.6 13.6 Hct (35.9 - 49.5 %) 40.6 43.7 MCV (81.7 - 96.1 fL) 97 H 97 H MCH (27.6 - 33.2 pg) 30.0 30.0 MCHC (32.9 - 35.5 %) 31.0 L 31.1 L RDW (12.1 - 15.2 %) 14.1 14.3 Plt Count (129 - 368 K/MM3) 104 L 117 L MPV (7.4 - 10.4 fl) 12.2 H 12.2 H Neut % (Auto) (43 - 75 %) 84.5 H 68.5 Lymph % (Auto) (14 - 44 %) 10.0 L 22.4 [place] % (Auto) (4 - 13 %) 5.0 7.4 Eos % (Auto) (0 - 6 %) 0.0 0.9 Baso % (Auto) (0 - 2 %) 0.1 0.5 Neut # (Auto) (2.0 - 7.6 K/mm3) 7.76 H 4.38 Lymph # (Auto) (1.0 - 3.8 K/mm3) 0.92 L 1.43 [place] # (Auto) (0.1 - 0.8 K/mm3) 0.46 0.47 Eos # (Auto) (0.0 - 0.2 K/mm3) 0.00 0.06 Baso # (Auto) (0.0 - 0.2 K/mm3) 0.01 0.03 Immature Gran % (0.0 - 2.0 %) 0.4 0.3 Nucleated RBC % (0 - 1.0 %) 0.0 0.0 Nucleated RBCs # (Man) (0.0 - 0.1 K/mm3) 0.00 0 .00 Laboratory Tests 12/15 1000 Serology SARS-CoV-2 Ag (Rapid) (Negative) NEGATIVE Laboratory Tests 12/15 1000 Chemistry Magnesium (1.6 - 2.3 MG/DL) 2.5 H Laboratory Tests 12/15 1000 Coagulation APTT (26.2 - 35.4 SECONDS) 39.3 H Radiology data: Recent Impressions: RADIOLOGY - XR CHEST 1V 12/15 1830 Report Impression - Status: SIGNED Entered: 12/15/20212114 IMPRESSION: Small degree of evolving fluid overload Impression By: Ramesh Olmos MD Diagnosis, Assessment Plan Free Text DxA P Notes Free Text DxA P Notes: IMP: Ischemic cardiomyopathy CAD - stable HTN PAFIB AICD - [facility] ARCHITECT INTERN-D. PLAN: [facility] Diuresis with IV lasix Ambulate with assist. at 0837 RPT #:[id number] END OF REPORT 2021-12-15 20:58:00-00:00 [id number] [address] PATIENT NAME: JENNIFER RODGERS JR ADMIT DATE: 12/15/21 ACCOUNT NO: [id number] ROOM NO: Z.I14 AGE: 81 REPORT TYPE: ELECTROCARDIOGRAM SEX: M ADMITTING PHYSICIAN:Stuart Motley MD ATTENDING PHYSICIAN:Stuart Motley MD Order: [id number] Test Reason : VTACH Test Date/Time Stamp: TueDec 15 2021 20:58:17 Blood Pressure : / mmHG Vent. Rate : 072 BPM Atrial Rate : 078 BPM P-R Int : 000 ms QRS Dur : 224 ms QT Int : 598 ms P-R-T Axes : 000 251 108 degree s QTc Int : 654 ms Electronic ventricular pacemaker When compared with ECG of 15-DEC-2021 10:32, No significant change was found Confirmed by ANDRIA JUDGE ([id number]) on 12/16/2021 6:59:22 AM Referred By: Stuart Motley Confirmed by:ANDRIA GONSALES at 0659 PATIENT NAME: JENNIFER RODGERS JR ACCOUNT #: [id number] 2021-12-15 10:32:00-00:00 [id number] [place] [address] PATIENT NAME: JENNIFER RDOGERS JR ADMIT DATE: 12/15/21 ACCOUNT NO: [id number] ROOM NO: AGE: 81 REPORT TYPE: ELECTROCARDIOGRAM SEX: M ADMITTING PHYSICIAN: ATTENDING PHYSICIAN:Stuart Motley MD Order: [id number] Test Reason : VETRICULAL TACHYCARDIA Test Date/Time Stamp: TueDec 15 2021 10:32:35 Blood Pressure : / mmHG Vent. Rate : 071 BPM Atrial Rate : 063 BPM P-R Int : 000 ms QRS Dur : 208 ms QT Int : 500 ms P-R-T Axes : 000 039 204 degree s QTc Int : 543 ms Electronic ventricular pacemaker When compared with ECG of 01-DEC-2021 17:59, No significant change was found Confirmed by ANDRIA JUDGE ([id number]) on 12/15/2021 4:07:26 PM Referred By: Stuart Motley Confirmed by:ANDRIA GONSALES at 1607 PATIENT NAME: JENNIFER RODGERS JR ACCOUNT #: [id number] 2021-12-03 08:58:00-00:00 [facility] ([facility]) Hospitalist Discharge Summary REPORT#:[id number] REPORT STATUS: Signed DATE:12/03/21 TIME: 857 PATIENT: JENNIFER RODGERS JR UNIT #: [id number] ROOM/BED: [address] : 38 AGE: 81 SEX: M ATTEND: Rosalino Fair MD ADM AUTHOR: Javier Mcfadden DO R1 * ALL edits or amendments must be made on the Proformative/computer document * Javier Mcfadden 12/03/21 0858: General Information Problem List/A P: 1. AICD discharge 2. Chronic systolic (congestive) heart failure A P EF: 30-34% with moderate hypokinesis 3. Elevated troponin A P Not due to ACS 4. A-fib A P chronic 5. T2DM (type 2 diabetes mellitus) A P chronic 6. HTN (hypertension) 7. FLAVIO treated with BiPAP 8. BPH (benign prostatic hyperplasia) Date of admission: Date of admission: 12/01/21 Discharge date: 12/03/21 Admission diagnosis: AICD discharge Discharge diagnosis: AICD discharge Hospital course: 81 y/o male with a PMHx of a -fib on Warfarin, CHF (EF: unknown ), T2DM, HTN, FLAVIO on BiPaP with O2, and BPH presents to our hospit al transferred from [facility] for further evaluation and treatment after his AICD discharged on him twice yesterday, 2100 and 0000. [facility] discharged 7 times over the last two weeks prior to presentation. 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 He was continued on Amiodarone and Mexiletine was added. Pt was monitored during his hospital stay and he did not feel any further AICD discharges. Echo showed EF 30-34% w ith moderate hypokinesis. His slight elevation of troponin was likely due to the AICD discharge. PT/INR were checked daily and will reduce the dosage fr om 7.5 -> 5 mg. Pt stable to be discharged home. F/u with cardio logist. Consultants: cardiology Pt. condition on discharge: stable Allergies: Allergies: Penicillins (Coded, RASH-UNKNOWN, 09/12/13) Med Rec Med Rec Discharge meds: Stop taking the following medications: WARFARIN (COUMADIN) 5 MG TAB 7.5 MILLIGRAM ORAL DAILY. Continue taking these medications: FUROSEMIDE (LASIX) 40 MG TAB 40 MILLIGRAM ORAL TWICE DAILY AT 9AM 4PM. AMIODARONE (CORDARONE) 200 MG TAB 200 MILLIGRAM ORAL TWICE DAILY. Instructions: Take half tab every other day (100mg dose) SIMVASTATIN (ZOCOR) 20 MG TAB 20 MILLIGRAM ORAL BEDTIME. QUINAPRIL (ACCUPRIL) 40 MG TAB 40 MILLIGRAM ORAL DAILY. CARVEDILOL (COREG) 25 MG TAB 25 MILLIGRAM ORAL TWICE DAILY. TAMSULOSIN ER (FLOMAX) 0.4 MG CAP.SR.24H 0.4 MILLIGRAM ORAL BEDTIME. MULTIVITAMIN/MIN (MULTIVITAMIN/MINERALS) 1 TAB T AB 1 TABLET ORAL DAILY. ASPIRIN (ASPIRIN) 81 MG TAB.CHEW 81 MILLIGRAM ORAL DAILY. GLUCOSAMINE/D3/BOSWELLIA WILBERTO (OSTEO BI-FLEX) 1 ,500 MG-400 UNIT-100 MG TAB 2 TABLET ORAL DAILY. [Acidophillus] 2 CAPSULE ORAL DAILY. [EYE DROPS] 1 DROP BOTH EYES DAILY. as needed for NEEDED ITCHING EYES Instructions: (ANTIHISTAMINE EYE DROPS) SPIRONOLACTONE (ALDACTONE) 25 MG TAB 25 MILLIGRAM ORAL EVERY MORNING. GLIMEPIRIDE (AMARYL) 2 MG TAB 2 MILLIGRAM ORAL WITH BREAKFAST. Start taking the following new medications: FLUTICASONE PROPIONATE (FLONASE 50 MCG/ACT NASAL ) 50 MCG/ACTUATION SPRAY 1 SPRAY NASAL TWICE DAILY. Qty = 16 No Refills Instructions: One spray in each nostril. WARFARIN (COUMADIN) 5 MG TAB 5 MILLIGRAM ORAL DAILY. Qty = 30 No Refills MEXILETINE (MEXITIL) 150 MG CAP 150 MILLIGRAM ORAL EVERY 8 HOURS. Days = 30 Qty = 90 No Refills Objective VS/I O Last Documented: Result Date Time Pulse Ox 92 12/03 734 B/P 111/71 12/03 734 B/P Mean 84.4 12/03 734 O2 Delivery Nasal cannula 12/03 734 Temp 98.1 12/03 734 Pulse 70 12/03 734 Resp 18 12/03 734 O2 Flow Rate 2 12/03 1999 24 hour I O ending at 0700: 12/03 0700 12/02 1900 Intake Total 240 Output Total 800 Balance -560 Intake, Oral 240 Output, Urine 800 General appearance: alert, awake, oriented, no a cute distress, pleasant, conversational, mental status normal, no respira tory distress Head/Eyes: clear cornea, EOMI, normal conjunctiv a/sclera ENT: moist mucosal membranes Neck: JVD present (b/l), full range of motion, s upple/no meningismus Cardiovascular: no murmur, paced rhythm Respiratory: on oxygen (2 L), aerating well, daniele ar to auscultation, symmetric expansion Abdomen: non-tender, normal bowel sounds, soft, no mass/organomegaly, no rebound Extremities: edema (2+), moves all, norm al range of motion, no calf tenderness Musculoskeletal: painless range of motion, no CV A tenderness, no midline vertebral tend, no muscle spasm, no paraspinal t enderness Neuro/CREATIVE PRODUCER: alert, oriented X 3, normal speech Skin: dry Psychiatry: normal affect, normal judgment/insig ht, normal mood Results Findings/Data: Laboratory Tests: 12/03 12/03 12/02 12/02 12/02 0730 0636 1917 1518 1047 Chemistry Sodium (137 - 145 MMOL/L) 137 Potassium (3.5 - 5.1 MMOL/L) 3.9 Chloride (98 - 107 MMOL/L) 100 Carbon Dioxide (22 - 30 MMOL/L) 33 H Anion Gap (14 - 24 MMOL/L) 8 L BUN (9 - 20 MG/DL) 20 Creatinine (0.66 - 1.25 MG/DL) 1.00 Glomerular Filtr Rate > 60 Glucose (74 - 106 MG/DL) 133 H POC Glucose (60 - 99 MG/DL) 190 H 120 H 83 159 H Calcium (8.4 - 10.2 MG/DL) 8.9 Coagulation INR (0.86 - 1.14) 2.8 H PT Patient/Control Mix (9.4 - 12.7 32.0 H SECONDS) Discharge Instructions PCP PCP follow-up: PCP: Stuart Motley MD Discharge to: Home/Self Care Additional Discharge Routines: PCP Follow-Up, Co nsultant Follow-Up Diet: Diabetic, Cardiac Activity: Resume Normal Activity, As Tolerated Prescriptions: e-prescribe Discharge management: greater than 30 mins Time spent: Time spent on patient care (minutes): 34 Follow-up Appointments PCP follow-up: PCP (free text): Own PCP PCP follow up timeframe: In 1-2 weeks Consulting provider 1: Provider 1: Stuart Motley MD Specialty: Cardiology Consult follow up timeframe: In 1-2 weeks Quality: Discharge Advanced Care Plan 65 or Older Discussed with: patient Discussion included: code status (DNR/DNI) Current Medications Current medication review: I attest that the foregoing medication list in t he medical record is true, accurate, and complete to the best of my knowled ge. Attestations Attestation needed: supervising physician Rosalino Fair 12/03/21 1634: Attestations Teaching Physician Attestation F/U visit w/ resident: I saw the patient with the Javier vang, PGY1, during rounds on and agree with the resident's findings a nd plan. Electronically Signed by Javier Mcfadden DO R1 o n 12/03/21 at 1333 Electronically Signed by Rosalino Fair MD on 12/03 at 1634 RPT #:[id number] END OF REPORT 2021-12-03 06:33:00-00:00 [facility] ([facility]) Cardiology Progress Note REPORT#:[id number] REPORT STATUS: Signed DATE:12/03/21 TIME: 632 PATIENT: JENNIFER RODGERS UNIT #: [id number] ROOM/BED: [address] : 38 AGE: 81 SEX: M ATTEND: Rosalino Fair MD ADM AUTHOR: Stuart Motley MD * ALL edits or amendments must be made on the Proformative/computer document * Subjective Chief complaint: AICD Shock Patient reports: No: chest pain, palpitations, swelling. Objective General VS/I O: 24 hour I O ending at 0700: 12/03 0700 12/02 1900 Intake Total 240 Output Total 800 Balance -560 Intake, Oral 240 Output, Urine 800 Vital Signs: Date Time Temp Pulse Resp B/P B/P Pulse O2 O2 F low FiO2 Mean Ox Delivery Rate 12/03 0412 98.1 66 18 116/73 87.7 91 Nasal cannula 12/02 2336 98.2 70 18 101/67 78.5 93 Nasal cannula 12/02 2000 Nasal 2 cannula 12/02 1919 98.2 69 18 122/74 90.1 91 Nasal cannula 12/02 1520 98.8 70 16 106/67 79.9 91 Nasal cannula 12/02 1052 98.2 70 16 107/67 80.1 92 Nasal cannula 12/02 0707 98.1 74 18 115/71 85.5 91 Nasal cannula PATIENT WEIGHT: Weight (lb): Weight (oz): Weight (kg): 108.182 Medications: Active Meds + DC'd Last 24 Hrs Fluticasone Propionate (FLONASE) 2 SPRAY BID NA CORINA (CKD) Bisacodyl (DULCOLAX) 10 MG DAILY 1700 PO Aspirin (CHILDREN'S ASPIRIN) 81 MG DAILY PO Iron/Minerals/Multivitamins (THERAGRAN-M) 1 EA D AILY PO Lisinopril (PRINIVIL) 20 MG DAILY PO Glimepiride (AmaryL) 2 MG C BK PO Amiodarone HCl (CORDARONE) 200 MG BID PO Atorvastatin Calcium (LIPITOR) 10 MG BEDTIME PO Carvedilol (COREG) 25 MG BID PO Mexiletine HCl (MEXITIL) 150 MG Q8HR PO Tamsulosin HCl (FLOMAX) 0.4 MG BEDTIME PO Warfarin Sodium (COUMADIN) 7.5 MG DAILY@1700 PO (DA) Insulin Human Lispro (HumaLOG) LOW DOSE SLIDING SCALE AC HS SUBQ Furosemide (LASIX) 40 MG 0900,1600 PO Hydralazine HCl (APRESOLINE) 10 MG Q4H PRN PRN I V Melatonin (MELATONIN) 3 MG BEDTIME PRN PO Ondansetron HCl (ZOFRAN ODT) 4 MG Q8H PRN PRN SL Spironolactone (ALDACTONE) 25 MG QAM PO Dextrose/Water (DEXTROSE 50% IN WATER) 12.5 GM A SDIR PRN IV Dextrose/Water (DEXTROSE 50% IN WATER) 25 GM ASD IR PRN IV Acetaminophen (TYLENOL) 650 MG Q6H PRN PRN PO Physical Exam General appearance: alert, awake, oriented Head/Eyes: atraumatic, normocephalic ENT: moist mucosal membranes, normal nose, indu l pharynx Neck: no JVD Cardiovascular: CV assessment: regular rate and rhythm Respiratory: clear to auscultation, no distress Lower extremity: LE assessment: no edema Musculoskeletal: full range of motion Neuro/CREATIVE PRODUCER: alert, oriented X 3, CN II-XII intact Skin: dry, intact Psychiatry: normal affect, normal judgment/insig ht, normal mood Results Findings/Data: Laboratory Tests 12/02 12/02 12/02 12/02 1917 1518 1047 0703 Chemistry POC Glucose (60 - 99 MG/DL) 120 H 83 159 H 158 H Diagnosis, Assessment Plan Consultants: cardiology Free Text DxA P Notes Free Text DxA P Notes: IMP: Ischemic CMP - LVEF 30-34% by echo 12/02/21. Multiple AICD shocks - tolerating mexiletine. s/p [facility] AICD PLAN: Continue amiodarone with mexiletine. Plan EP study / ablation. at 0957 RPT #:[id number] END OF REPORT 2021-12-02 16:50:00-00:00 [id number] [address] PATIENT NAME: JENNIFER RODGERS JR ADMIT DATE: 12/01/21 ACCOUNT NO: [id number] ROOM NO: [facility] AGE: 81 REPORT TYPE: ECHOCARDIOGRAM SEX: M ADMITTING PHYSICIAN:Rosalino Fair MD ATTENDING PHYSICIAN:Rosalino Fair MD *[facility]* [address] [place] [address] Transthoracic Echocardiogram Patient: Jennifer Rodgers Study Date: 12/02/2021 BP: 109 / 67 Location: [facility] URN: [id number] : 1940 Age: 81 Height: 62 in / 157.5 cm Gender: M Weight: 237 .5 lb / 108 kg BMI/BSA: 43.5 kg/m 2 / 2.24 m 2 *Ordering Physician: * Andria Judge MD *Interpreting Physician: * Andria Judge MD *Cafeteria Server: * Cain ANGELO, RCS, RVS Indications: VT/CMP. Study data: Transthoracic echocardiogram. Proced ure: Transthoracic echocardiography was performed. Images were obta ined using a SnappCloud cardiac ultrasound machine. Image quality was adequate. M-mode, complete 2D, complete spectral Doppler, and color Doppler. Lo cation: Bedside. Patient status: Inpatient. Patient room number: 408-A. Study status: Routine. Findings Left ventricle: The cavity size is mildly dilate d. There is no hypertrophy. Systolic function is moderately red uced. The estimated ejection fraction is 30-34%. Regional wall motio n abnormalities: Moderate hypokinesis of the entire myocardium. D oppler parameters are PATIENT NAME: JENNIFER RODGERS JR ACCOUNT #: Z [id number] consistent with restrictive physiology, indicati ve of decreased left ventricular diastolic compliance and/or increase d left atrial pressure. Right ventricle: The cavity size is mildly dilat ed. Systolic function is mildly reduced. Systolic pressure is moderate ly increased. Ventricular septum: Septal motion is dyssynergic . There is diastolic flattening and systolic flattening. Left atrium: The atrium is mildly dilated. Right atrium: The atrium is mildly dilated. Pace r/Defibrillator wire noted in right atrium. Atrial septum: No defect or patent foramen ovale is identified. Aorta: Aortic arch: The aortic arch is not visua lized. Abdominal aorta: The abdominal aorta is poorly v isualized and normal. Aortic valve: The valve is trileaflet. The leafl ets are mildly thickened. Thickening, consistent with sclerosis . There is no evidence of stenosis. There is mild regurgitation. Mitral valve: The leaflets are mildly thickened. There is no evidence of stenosis. There is mild regurgitation. Tricuspid valve: The leaflets are normal thickne ss. There is mild regurgitation. Pulmonic valve: The leaflets are normal thicknes s. There is mild regurgitation. Pericardium: There is no pericardial effusion. Systemic veins: Inferior vena cava: The vessel is mildly dilated . Measurements Left ventricle Value Ref LALITHA, LAX 6.8 cm 4.2 - 5.8 ESD, LAX 5.8 cm 2.5 - 4.0 ESD/bsa, LAX 2.6 cm/m 2 1.3 - 2.1 FS, LAX 15 % 25 - 43 PW, ED 1.2 cm 0.6 - 1.0 PW, ES 1.6 cm --------- IVS/PW, ED 0.81 --------- EF 31 % 52 - 72 LVOT Value Ref Diam, S 2.32 cm --------- Area 4.2 cm 2 --------- Peak sushil, S 0.68 m/sec --------- Mean sushil, S 0.36 m/sec --------- VTI, S 9.7 cm --------- Peak grad, S 2 mm Hg --------- Mean grad, S 1 mm Hg --------- SV 41 ml --------- Qs 2.85 L/min --------- Qs/bsa 1.3 L/(min-m 2) --------- SV/bsa 18 ml/m 2 --------- Ventricular septum Value Ref IVS, ED 1.0 cm 0.6 - 1.0 IVS, ES 1.4 cm --------- PATIENT NAME: JENNIFER RODGERS ACCOUNT #: Z [id number] Right ventricle Value Ref LALITHA, LAX 3.8 cm --------- Pressure, S 66 mm Hg --------- S' lateral 7.0 cm/sec 6.0 - 13.4 RVOT Value Ref Peak v, S 0.95 m/sec --------- Peak grad, S 4 mm Hg --------- Left atrium Value Ref AP dim, ES 4.27 cm 3.00 - 4.00 Aortic valve Value Ref Leaflet sep, MM 2.34 cm --------- Peak v, S 1.02 m/sec --------- Mean v, S 0.69 m/sec --------- VTI, S 18.4 cm --------- Mean grad, S 2.3 mm Hg --------- Peak grad, S 4.2 mm Hg --------- LVOT/AV, VTI 0.53 --------- ratio OLEG, VTI 2.21 cm 2 --------- LVOT/AV, Vpeak 0.66 --------- ratio OLEG, Vmax 3.08 cm 2 --------- AR peak v 2.66 m/sec --------- AR peak grad 28 mm Hg --------- Mitral valve Value Ref E-septal 2.0 cm --------- separation Mean v, D 0.63 m/sec --------- VTI leaflet 12.9 cm --------- coapt Mean grad, D 2.0 mm Hg --------- Peak grad, D 5.1 mm Hg --------- MR peak v 3.32 m/sec --------- Pulmonic valve Value Ref KS peak v 2.69 m/sec --------- KS peak grad 29 mm Hg --------- KS v, ED 0.7 m/sec --------- Tricuspid valve Value Ref TR peak v 3.73 m/sec <=2.8 Peak RV-RA grad, 56 mm Hg --------- S Aortic root Value Ref Root diam, ED MM 3.68 cm --------- PATIENT NAME: JENNIFER RODGERS ACCOUNT #: [id number] Pulmonary artery Value Ref Pressure, S 61.3 mm Hg --------- Systemic veins Value Ref Estimated CVP 10 mm Hg --------- Conclusions Summary: 1. Left ventricle: The cavity size is mildly dil ated. Systolic function is moderately reduced. The estimated ejection f raction is 30-34%. Moderate hypokinesis of the entire myocardium. Doppler parameters are consistent with restrictive physiology, indicat yesi of decreased left ventricular diastolic compliance and/or increas ed left atrial pressure. 2. Right ventricle: The cavity size is mildly di lated. Systolic function is mildly reduced. Systolic pressure is moderat sidra increased. The RV pressure during systole by Doppler is 66 mm Hg. 3. Ventricular septum: Septal motion is dyssyner gic. 4. Left atrium: The atrium is mildly dilated. 5. Right atrium: The atrium is mildly dilated. Prepared and electronically signed by Andria Judge MD 12/02/2021 16:50 at 1650 PATIENT NAME: JENNIFER RODGERS JR ACCOUNT #: [id number] 2021-12-02 06:31:00-00:00 [facility] ([facility] Hospitalist Progress Note REPORT#:[id number] REPORT STATUS: Signed DATE:12/02/21 TIME: 630 PATIENT: JENNIFER RODGERS JR UNIT #: [id number] ROOM/BED: [address] : 38 AGE: 81 SEX: M ATTEND: Zaira Fair MD ADM AUTHOR: Javier Mcfadden DO R1 * ALL edits or amendments must be made on the Proformative/computer document * Javier Mcfadden 12/02/21 0631: Subjective Chief complaint: Palpitations HPI: Patient seen and examined at bedside. Doing well and has no concerns or complaints. He slept well la night and has not felt the AICD discharge. Denies palpitations, chest pain, nausea, vomiting, abdo dima pain, headache, lightheadedness, or dizziness. Review of Systems Constitutional: Denies: chills, fatigue, fever, generalized weak ness. Allergy/Immun: Denies: rhinorrhea, sneezing. Eyes: Denies: visual loss/blurred. ENT: Denies: nasal congestion, sore throat. Respiratory: Denies: non productive cough, productive cough ( sputum), SOB, wheezing. Cardiovascular: Denies: chest pain, palpitations. GI: Denies: abdominal pain, constipation, diarrhea, nausea, vomiting. : Denies: dysuria, flank pain, frequency. Neuro: Denies: dizziness, headache, lightheaded, numbne ss. All systems rev neg: except as marked Objective General VS/I O: Vital Signs: Date Time Temp Pulse Resp B/P B/P Pulse O2 O2 F low FiO2 Mean Ox Delivery Rate 12/02 0707 98.1 74 18 115/71 85.5 91 Nasal cannula 12/02 0421 98.2 72 16 109/67 81.1 92 Nasal cannula 12/02 0122 2 12/01 2358 98 Nasal cannula 12/01 2357 99.1 70 117/65 82.6 88 12/01 2127 98.1 72 16 104/72 82.6 96 Nasal cannula 12/01 1750 Nasal 2 cannula 12/01 1721 98.2 71 20 139/77 97.7 79 12/01 1029 98.6 73 20 124/71 88 96 Room air 24 hour I O ending at 0700: 12/02 0700 12/01 1900 Intake Total 600 Output Total 1 700 Balance 599 -700 Intake, Oral 600 Number Voids 2 Output, Stool 1 Output, Urine 700 Patient 108.182 kg Weight Weight Stated/Reported Measurement Method PATIENT WEIGHT: Weight (lb): Weight (oz): Weight (kg): 108.182 Physical Exam General appearance: alert, awake, oriented, plea nolan, conversational, mental status normal, no respiratory distress Head/Eyes: clear cornea, EOMI, normal conjunctiv a/sclera ENT: moist mucosal membranes Neck: JVD present (b/l), full range of motion, s upple/no meningismus Cardiovascular: no murmur, paced rhythm Respiratory: on oxygen (2 L), aerating well, daniele ar to auscultation, symmetric expansion Abdomen: non-tender, normal bowel sounds, soft, no mass/organomegaly, no rebound Extremities: edema (2+), moves all, norm al range of motion, no calf tenderness Musculoskeletal: painless range of motion, no CV A tenderness, no midline vertebral tend, no muscle spasm, no paraspinal t enderness Neuro/CREATIVE PRODUCER: alert, oriented X 3, normal speech Skin: dry Psychiatry: normal affect, normal judgment/insig ht, normal mood Results Findings/Data: Laboratory Tests 12/02 12/02 12/02 12/01 12/01 0703 0534 3834 5 1824 Chemistry Sodium (137 - 145 MMOL/L) 137 Potassium (3.5 - 5.1 MMOL/L) 3.8 Chloride (98 - 107 MMOL/L) 101 Carbon Dioxide (22 - 30 MMOL/L) 32 H Anion Gap (14 - 24 MMOL/L) 8 L BUN (9 - 20 MG/DL) 19 Creatinine (0.66 - 1.25 MG/DL) 0.90 Glomerular Filtr Rate > 60 Glucose (74 - 106 MG/DL) 143 H POC Glucose (60 - 99 MG/DL) 158 H 148 H Mean Blood Glucose (70 - 110 MG/DL) 154 H Hemoglobin A1c (4.8 - 5.9 %) 7.0 H Calcium (8.4 - 10.2 MG/DL) 8.9 Total Bilirubin (0.2 - 1.3 MG/DL) 1.0 AST (17 - 59 UNITS/L) 23 ALT (0 - 49 UNITS/L) 13 Total Alk Phosphatase (38 - 126 80 UNITS/L) Troponin I (0.012 - 0.033 NG/ML) 0.055 H Total Protein (6.2 - 7.6 G/DL) 6.5 Albumin (3.5 - 5.0 G/DL) 3.7 Triglycerides (150 - 199 MG/DL) 67 L Cholesterol (<200 MG/DL) 109 LDL Cholesterol Measurd (0 - 99 51 MG/DL) HDL Cholesterol (40 - 59 MG/DL) 39 L 12/01 12/01 12/01 12/01 1720 1627 1344 1100 Chemistry Sodium (137 - 145 MMOL/L) 139 Potassium (3.5 - 5.1 MMOL/L) 3.8 Chloride (98 - 107 MMOL/L) 102 Carbon Dioxide (22 - 30 MMOL/L) 29 BUN (9 - 20 MG/DL) 24 H Creatinine (0.66 - 1.25 MG/DL) 1.10 Glomerular Filtr Rate > 60 Glucose (74 - 106 MG/DL) 141 H POC Glucose (60 - 99 MG/DL) 194 H 205 H Calcium (8.4 - 10.2 MG/DL) 9.4 Troponin I (0.012 - 0.033 NG/ML) 0.050 H 0.035 H LDL Cholesterol (100 - 129 mg/dL) 55 L Laboratory Tests 12/02 12/01 0534 1100 Coagulation INR (0.86 - 1.14) 2.9 H 2.6 H PT Patient/Control Mix (9.4 - 12.7 SECONDS) 33 .1 H 29.7 H Laboratory Tests 12/02 12/01 0534 1100 Hematology WBC (3.8 - 9.8 K/MM3) 8.8 8.1 RBC (3.95 - 5.67 M/MM3) 4.27 4.69 Hgb (12.4 - 16.7 G/DL) 12.9 14.0 Hct (35.9 - 49.5 %) 40.7 44.2 MCV (81.7 - 96.1 fL) 95 94 MCH (27.6 - 33.2 pg) 30.2 29.9 MCHC (32.9 - 35.5 %) 31.7 L 31.7 L RDW (12.1 - 15.2 %) 14.5 14.4 Plt Count (129 - 368 K/MM3) 109 L 126 L MPV (7.4 - 10.4 fl) 12.3 H Neut % (Auto) (43 - 75 %) 73.3 Lymph % (Auto) (14 - 44 %) 17.5 [place] % (Auto) (4 - 13 %) 7.8 Eos % (Auto) (0 - 6 %) 0.7 Baso % (Auto) (0 - 2 %) 0.5 Neut # (Auto) (2.0 - 7.6 K/mm3) 6.46 5.33 Lymph # (Auto) (1.0 - 3.8 K/mm3) 1.54 2.16 [place] # (Auto) (0.1 - 0.8 K/mm3) 0.69 0.56 Eos # (Auto) (0.0 - 0.2 K/mm3) 0.06 0.04 Baso # (Auto) (0.0 - 0.2 K/mm3) 0.04 0.03 Immature Gran % (0.0 - 2.0 %) 0.2 Nucleated RBC % (0 - 1.0 %) 0.0 Nucleated RBCs # (Man) (0.0 - 0.1 K/mm3) 0.00 0 .00 Diagnosis, Assessment Plan Problem List/A P: 1. AICD discharge 2. Chronic congestive heart failure 3. A-fib chronic 4. T2DM (type 2 diabetes mellitus) chronic 5. HTN (hypertension) 6. FLAVIO treated with BiPAP 7. BPH (benign prostatic hyperplasia) Consultants: cardiology Free Text DxA P Notes Free text DxA P notes: 81 y/o male with a PMHx of a -fib on Warfarin, CHF (EF: unknown ), T2DM, HTN, FLAVIO on BiPaP with O2, and BPH presents to our hospit al transferred from [facility] for further evaluation and treatment after his AICD discharged on him twice yesterday, 2100 and 0000. 12/01 - Admit to tele - Trend troponins - Dr. Motley, patient's cardiologt, consulted by ED - Will hold Warfarin for procedure with Dr. Multani er - INR at outside facility 2.6 - low dose SSI - AM labs - Resume home meds 12/02 - Troponin likely due to AICD discharging in the past few days - Echo, pending - A1c, 7.0 - Cardiology consulted, appreciate recommendatio ns - Will continue amiodarone and add mexiletine - Plan for EP study/ablation - Will continue Warfarin after ablation Diet: Diabetic DVT PPx: On Warfarin, but will hold due to proce dure. SCDs NOK: Mellisa Cramer (Daughter) [phone] Code Status: DNR/DNI Quality: Gen Med Crit Care VTE Prophylaxis VTE prophylaxis initiated: yes (mechanical comp device) Current Medications Current medication review: I attest that the foregoing medication list in t he medical record is true, accurate, and complete to the best of my knowled ge. Advanced Care Plan 65 or Older Discussed with: patient Discussion included: code status (DNR/DNI) Attestations Attestation needed: supervising physician Rosalino Fair 12/02/21 1432: Attestations Teaching Physician Attestation F/U visit w/ resident: I saw the patient with the r Javier hinojosa, PGY1, and agree with the resident's findings and plan. Electronically Signed by Javier Mcfadden DO R1 o n 12/02/21 at 1123 Electronically Signed by Rosalino Fair MD on 12/02 at 1433 RPT #:[id number] END OF REPORT 2021-12-02 06:25:00-00:00 [facility] ([facility]) Cardiology Progress Note REPORT#:[id number] REPORT STATUS: Signed DATE:12/02/21 TIME: 624 PATIENT: JENNIFER RODGERS JR UNIT #: [id number] AGE: 81 SEX: M ATTEND: Rosalino Fair MD ADM AUTHOR: Stuart Motley MD * ALL edits or amendments must be made on the Proformative/computer document * Subjective Chief complaint: AICD Shock Patient reports: No: chest pain, palpitations, shortness of breat h. Objective General VS/I O: 24 hour I O ending at 0700: 12/02 0700 12/01 1900 Intake Total 600 Output Total 700 Balance 600 -700 Intake, Oral 600 Number Voids 2 Output, Urine 700 Patient 108.182 kg Weight Weight Stated/Reported Measurement Method Vital Signs: Date Time Temp Pulse Resp B/P B/P Pulse O2 O2 F low FiO2 Mean Ox Delivery Rate 12/02 0421 98.2 72 16 109/67 81.1 92 Nasal cannula 12/02 0122 2 12/01 2358 98 Nasal cannula 12/01 2357 99.1 70 117/65 82.6 88 12/01 2127 98.1 72 16 104/72 82.6 96 Nasal cannula 12/01 1750 Nasal 2 cannula 12/01 1721 98.2 71 20 139/77 97.7 79 12/01 1029 98.6 73 20 124/71 88 96 Room air PATIENT WEIGHT: Weight (lb): Weight (oz): Weight (kg): 108.182 Medications: Active Meds + DC'd Last 24 Hrs Aspirin (CHILDREN'S ASPIRIN) 81 MG DAILY PO Iron/Minerals/Multivitamins (THERAGRAN-M) 1 EA D AILY PO Lisinopril (PRINIVIL) 20 MG DAILY PO Glimepiride (AmaryL) 2 MG C BK PO Enoxaparin Sodium (LOVENOX) 40 MG 0600 SUBQ (CAN ) Amiodarone HCl (CORDARONE) 200 MG BID PO Atorvastatin Calcium (LIPITOR) 10 MG BEDTIME PO Carvedilol (COREG) 25 MG BID PO Mexiletine HCl (MEXITIL) 150 MG Q8HR PO Tamsulosin HCl (FLOMAX) 0.4 MG BEDTIME PO Warfarin Sodium (COUMADIN) 7.5 MG DAILY@1700 PO (WDA) Insulin Human Lispro (HumaLOG) LOW DOSE SLIDING SCALE AC HS SUBQ Furosemide (LASIX) 40 MG 0900,1600 PO Hydralazine HCl (APRESOLINE) 10 MG Q4H PRN PRN IV Melatonin (MELATONIN) 3 MG BEDTIME PRN PO Ondansetron HCl (ZOFRAN ODT) 4 MG Q8H PRN PRN SL Spironolactone (ALDACTONE) 25 MG QAM PO Dextrose/Water (DEXTROSE 50% IN WATER) 12.5 GM A SDIR PRN IV Dextrose/Water (DEXTROSE 50% IN WATER) 25 GM ASD IR PRN IV Acetaminophen (TYLENOL) 650 MG Q6H PRN PRN PO Physical Exam General appearance: alert, awake, oriented Head/Eyes: atraumatic, normocephalic ENT: moist mucosal membranes, normal nose, indu l pharynx Neck: no JVD Cardiovascular: CV assessment: regular rate and rhythm Respiratory: clear to auscultation, no distress Lower extremity: LE assessment: no edema Musculoskeletal: full range of motion Neuro/CREATIVE PRODUCER: alert, oriented X 3, CN II-XII intact Skin: dry, intact Psychiatry: normal affect, normal judgment/insig ht, normal mood Results Findings/Data: Laboratory Tests 12/01 12/01 12/01 12/01 12/01 2127 1824 1720 1627 1344 Chemistry POC Glucose (60 - 99 MG/DL) 148 H 194 H 205 H Troponin I (0.012 - 0.033 NG/ML) 0.055 H 0.050 H LDL Cholesterol (100 - 129 mg/dL) 55 L 12/01 1100 Chemistry Sodium (137 - 145 MMOL/L) 139 Potassium (3.5 - 5.1 MMOL/L) 3.8 Chloride (98 - 107 MMOL/L) 102 Carbon Dioxide (22 - 30 MMOL/L) 29 BUN (9 - 20 MG/DL) 24 H Creatinine (0.66 - 1.25 MG/DL) 1.10 Glomerular Filtr Rate > 60 Glucose (74 - 106 MG/DL) 141 H Calcium (8.4 - 10.2 MG/DL) 9.4 Troponin I (0.012 - 0.033 NG/ML) 0.035 H Laboratory Tests 12/01 1100 Coagulation INR (0.86 - 1.14) 2.6 H PT Patient/Control Mix (9.4 - 12.7 SECONDS) 29. 7 H Laboratory Tests 12/01 1100 Hematology WBC (3.8 - 9.8 K/MM3) 8.1 RBC (3.95 - 5.67 M/MM3) 4.69 Hgb (12.4 - 16.7 G/DL) 14.0 Hct (35.9 - 49.5 %) 44.2 MCV (81.7 - 96.1 fL) 94 MCH (27.6 - 33.2 pg) 29.9 MCHC (32.9 - 35.5 %) 31.7 L RDW (12.1 - 15.2 %) 14.4 Plt Count (129 - 368 K/MM3) 126 L Neut # (Auto) (2.0 - 7.6 K/mm3) 5.33 Lymph # (Auto) (1.0 - 3.8 K/mm3) 2.16 [place] # (Auto) (0.1 - 0.8 K/mm3) 0.56 Eos # (Auto) (0.0 - 0.2 K/mm3) 0.04 Baso # (Auto) (0.0 - 0.2 K/mm3) 0.03 Nucleated RBCs # (Man) (0.0 - 0.1 K/mm3) 0.00 Laboratory Tests 12/01 12/01 12/01 1824 1344 1100 Chemistry Troponin I (0.012 - 0.033 NG/ML) 0.055 H 0.050 H 0.035 H Diagnosis, Assessment Plan Consultants: cardiology Free Text DxA P Notes Free Text DxA P Notes: IMP: Ischemic CMP Multiple AICD shocks s/p [employer] AICD PLAN: Review echo Continue amiodarone with mexiletine. Plan EP study / ablation. at 0957 RPT #:[id number] END OF REPORT 2021-12-01 17:59:00-00:00 [id number] [address] PATIENT NAME: JENNIFER RODGERS JR ADMIT DATE: 12/01/21 ACCOUNT NO: [id number] ROOM NO: Z.408 AGE: 81 REPORT TYPE: ELECTROCARDIOGRAM SEX: M ADMITTING PHYSICIAN:Rosalino Fair MD ATTENDING PHYSICIAN:Rosalino Fair MD Order: [id number] Test Reason : palpitations Test Date/Time Stamp: TueDec 01 2021 17:59:57 Blood Pressure : / mmHG Vent. Rate : 071 BPM Atrial Rate : 054 BPM P-R Int : 000 ms QRS Dur : 200 ms QT Int : 504 ms P-R-T Axes : 000 -77 117 degre es QTc Int : 547 ms Ventricular-paced rhythm Abnormal ECG When compared with ECG of 12-SEP-2013 19:15, No significant change was found Confirmed by ANDRIA JUDGE ([id number]) on 12/02/2021 6:13:13 AM Referred By: Self Referred Confirmed by:ANDRIA SHI at 0613 PATIENT NAME: JENNIFER RODGERS JR ACCOUNT #: [id number] 2021-12-01 16:42:00-00:00 [id number] [place] [address] PATIENT NAME: JENNIFER RODGERS JR ADMIT DATE: 12/01/21 ACCOUNT NO: [id number] ROOM NO: Z.408 AGE: 81 REPORT TYPE: CONSULTATION REPORT SEX: M ADMITTING PHYSICIAN:Rosalino Fair MD ATTENDING PHYSICIAN:Rosalino Fair MD CONSULTATION DATE: 12/01/2021 CONSULTING PHYSICIAN: Stuart Motley MD REFERRING PHYSICIAN: Shira Chambers MD REASON FOR CONSULTATION: I was asked to evaluate this patient for AICD shocks. HISTORY OF PRESENT ILLNESS: This is an 81-year-o ld male with a history of ischemic cardiomyopathy, biventricular pacing AI CD, recurrent AICD shocks for ventricular tachycardia. He received 2 AICD shoc ks yesterday. He presented to [facility] for further evalu ation. He was stable in the Emergency Room, but was transferred here for fur ther evaluation and care. He was recently evaluated in the outpatient setting and given his recurrent episodes of ventricular tach ycardia, AICD shocks despite amiodarone therapy, an electrophysiology study and ablation was recomme nded. PAST MEDICAL HISTORY: 1. Chronic systolic heart failure. 2. BPH. 3. Biventricular pacing AICD. 4. Hypertension. 5. Atrial fibrillation. 6. Ischemic cardiomyopathy. SOCIAL HISTORY: No alcohol. Former smoker. FAMILY HISTORY: Positive for heart disease in hi s father. ALLERGIES: PENICILLIN. REVIEW OF SYSTEMS: CONSTITUTIONAL: No complaints of fever or chills . ENMT: No complaints of headache. EYES: No complaints of blurred vision. RESPIRATORY: No complaints of shortness of breat h or cough. CARDIOVASCULAR: Some chest discomfort after AICD shocks. GASTROINTESTINAL: No complaints of nausea or vom iting. GENITOURINARY: No complaints of urinary frequenc y or dysuria. MUSCULOSKELETAL: No complaints of joint pain. SKIN: No complaints of skin rash. NEUROLOGIC: No complaints of focal weakness. PATIENT NAME: JENNIFER RODGERS JR ACCOUNT #: [id number] PHYSICAL EXAMINATION: GENERAL: Elderly male, in no acute distress. VITAL SIGNS: Temperature 98.6, blood pressure 12 4/71, pulse 73, respiratory rate 20, and O2 saturations 96%. ENMT: Atraumatic, normocephalic. RESPIRATORY: Normal effort. LUNGS: Clear to auscultation bilaterally. CARDIOVASCULAR: Normal S1 and S2. No S3 or S4. NECK: There is a II/ holos ystolic murmur heard along the left sternal border. EXTREMITIES: Trace edema. NEUROLOGIC: Cranial nerves II through XII are in tact. No focal motor deficits noted. LABORATORY DATA: White blood cell count 8.1, hemoglobin 14, and platelets 126. Sodium 139, potassium 3.8, chloride 102, CO2 of 29, BUN 24, creatinine 1.1, glucose 141, and calcium 9.4. Troponin I 0.050. LDL 55. INR 2.6. IMPRESSION: 1. Chronic systolic heart failure. 2. History of ventricular tachycardia/ventricula r fibrillation. 3. Status post [employer] biventricular p acing AICD. Multiple AICD shocks. 4. Persistent atrial fibrillation. 5. Coronary artery disease. RECOMMENDATIONS: 1. We will add mexiletine to amiodarone. 2. 2D echocardiogram. 3. Continue other cardiac medications. 4. We will plan on EP study and ablation. 5. Review electrocardiogram. Dictated By: Stuart Motley MD WT: CON:Z.HIM/PEPGR/NTS Conf#: [id number]#: [id number] Authenticated and Edited by Stuart Motley MD On 12/04/21 10:09:12 AM at 1011 PATIENT NAME: JENNIFER RODGERS JR ACCOUNT #: [id number] 2021-12-01 12:30:00-00:00 [facility] ([facility]) Hospitalist History Physical REPORT#:[id number] REPORT STATUS: Signed DATE:12/01/21 TIME: 1230 PATIENT: JENNIFER RODGERS JR UNIT #: [id number] ROOM/BED: [address] : 38 AGE: 81 SEX: M ATTEND: Rosalino Fair MD ADM AUTHOR: Javier Mcfadden DO R1 * ALL edits or amendments must be made on the Proformative/computer document * Javier Mcfadden 12/01/21 1230: History of Present Illness HPI Chief complaint: Palpitations PCP: Cardiology: Stuart Motley MD HPI: 81 y/o male with a PMHx of a -fib on Warfarin, CHF (EF: unknown ), T2DM, HTN, FLAVIO on BiPaP with O2, and BPH presents to our hospit al transferred from [facility] for further evaluation and treatment after his AICD discharged on him twice yesterday, 2100 and 0000. Upon fur ther history he mentions that the AICD has been firing for over two weeks, approximately 7 times. He initially went to [facility] for left-sided chest pain that sta rted last night. He describes the pain as a "twitch." The pain lasted for a few minutes and resolved. He also mentions associated dyspnea and palpitations. Currently in the ED, he feels fine. He l ast saw Dr. Motley last Tuesday and was told at that time he may nee d an ablation. He use to be on Amiodarone 200 mg 1/2 tablet every other day, but for the last two weeks it was increased to 1 tablet every day and since last Tuesday he has b een taking 2 tablets every day. He has had an AICD for over 20 year s and he is currently on his third one. He does not remember his EF but does remember he had a weak heart and had the AICD placed. He has been told that his heart did get stronger once he started lifestyle changes and medications. Dr. Nu dobbs did a stress test in 2017 and the pt was told it was normal. At baseline he does get dyspnea with exertion and bilateral leg swelling. Currently denies chest pain, dyspnea, palpitatio ns, or cough. Denies CAD or stents. Denies COPD, asthma, emphysema, hypothyr oid, kidney disease, or arthritis. At [facility], pertinent labs showed BUN 26, Cr 1.33, BNP 2140, PT 29.4, and INR 2.62. EKG at their facility indicate d a demand pacer. In our ED, VSS. Labs show BUN 24, Cr 1.10, and Trop 0.035. Informant/historian: patient, family/other at [facility], prior records History Past Medical Surgical Hx Patient History: 1. T2DM (type 2 diabetes mellitus) 2. A-fib 3. CHF (congestive heart failure) 4. FLAVIO treated with BiPAP 5. BPH (benign prostatic hyperplasia) 6. S/P implantation of automatic cardioverter/d efibrillator (AICD) 7. HTN (hypertension) Additional medical history: Reports hx of bursistis on right shoulder and ce llulitis of BLE. Denies COPD, asthma, emphysema, hypothyroid, kid rodney disease, or arthritis. Additional surgical history: Reports surgery on right sandra ast due to gynecomastia, AICD placement 20 years ago Family History Family history: Reports: Heart disease (Father), Kidney disease/ stones (Mother). 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 Eyes: Denies: visual loss/blurred. ENT: Denies: nasal congestion, sore throat. Respiratory: Reports: PITTS (dyspnea on exertion). Denies: non productive cough, productive cough (sputum), SOB, wheezing. Cardiovascular: Reports: chest pain, PITTS (dy spnea on exertion), orthopnea, palpitations. Denies : edema. GI: Denies: abdominal pain, constipation, diarrhea, nausea, vomiting. : Denies: dysuria, flank pain, frequency, hematuri a. Musculoskeletal: Reports: extremity swelling (BLE). Denies: extre mity pain, lumbar pain, neck pain, thoracic pain. Neuro: Denies: dizziness, headache, lightheaded, numbne ss. All systems rev neg: except as noted Physical Exam VS/I O: Vital Signs Date Temp Pulse Resp B/P B/P Mean Pulse Ox FiO2 12/01 98.6 73 20 124/71 88 96 Last Documented: Result Date Time Pulse Ox 96 12/01 1029 B/P 124/71 12/01 1029 B/P Mean 88 12/01 1029 O2 Delivery Room air 12/01 1029 Temp 98.6 12/01 1029 Pulse 73 12/01 1029 Resp 20 12/01 1029 Patient Weight and BMI Weight (kg): 108.182 BMI: 30.6 General appearance: alert, awake, oriented, plea nolan, conversational Head/Eyes: clear cornea, EOMI, normal conjunctiv a/sclera ENT: moist mucosal membranes Neck: JVD present (b/l), full range of motion, s upple/no meningismus Cardiovascular: irregularly irregular, no murmur Respiratory: aerating well, clear to auscultatio n, symmetric expansion, no distress Abdomen: non-tender, normal bowel sounds, soft, no mass/organomegaly, no rebound Extremities: edema (2+), moves all, norm al range of motion, no calf tenderness Musculoskeletal: painless range of motion, no CV A tenderness, no midline vertebral tend, no muscle spasm, no paraspinal t enderness Neuro/CREATIVE PRODUCER: alert, oriented X 3, normal speech Skin: dry Psychiatry: normal affect, normal judgment/insig ht, normal mood Results Findings/Data: Laboratory Tests: 12/01 1100 Chemistry Sodium (137 - 145 MMOL/L) 139 Potassium (3.5 - 5.1 MMOL/L) 3.8 Chloride (98 - 107 MMOL/L) 102 Carbon Dioxide (22 - 30 MMOL/L) 29 BUN (9 - 20 MG/DL) 24 H Creatinine (0.66 - 1.25 MG/DL) 1.10 Glomerular Filtr Rate > 60 Glucose (74 - 106 MG/DL) 141 H Calcium (8.4 - 10.2 MG/DL) 9.4 Troponin I (0.012 - 0.033 NG/ML) 0.035 H Hematology WBC (3.8 - 9.8 K/MM3) 8.1 RBC (3.95 - 5.67 M/MM3) 4.69 Hgb (12.4 - 16.7 G/DL) 14.0 Hct (35.9 - 49.5 %) 44.2 MCV (81.7 - 96.1 fL) 94 MCH (27.6 - 33.2 pg) 29.9 MCHC (32.9 - 35.5 %) 31.7 L RDW (12.1 - 15.2 %) 14.4 Plt Count (129 - 368 K/MM3) 126 L Neut # (Auto) (2.0 - 7.6 K/mm3) 5.33 Lymph # (Auto) (1.0 - 3.8 K/mm3) 2.16 [place] # (Auto) (0.1 - 0.8 K/mm3) 0.56 Eos # (Auto) (0.0 - 0.2 K/mm3) 0.04 Baso # (Auto) (0.0 - 0.2 K/mm3) 0.03 Nucleated RBCs # (Man) (0.0 - 0.1 K/mm3) 0.00 Laboratory Tests 12/01/21 1100: [Embedded Image Not Available] Diagnosis, Assessment Plan Problem List/A P: 1. AICD discharge 2. Chronic congestive heart failure 3. A-fib chronic 4. T2DM (type 2 diabetes mellitus) chronic 5. HTN (hypertension) 6. FLAVIO treated with BiPAP 7. BPH (benign prostatic hyperplasia) Free Text A P: 81 y/o male with a PMHx of a -fib on Warfarin, CHF (EF: unknown ), T2DM, HTN, FLAVIO on BiPaP with O2, and BPH presents to our hospit al transferred from [facility] for further evaluation and treatment after his AICD discharged on him twice yesterday, 2100 and 0000. Plan: - Admit to tele - Trend troponins - Dr. Motley, patient's cardiologt, consulted by ED - Will hold Warfarin for procedure with Dr. Multani er - INR at outside facility 2.6 - low dose SSI - AM labs - Resume home meds Diet: Diabetic DVT PPx: On Warfarin, but will hold due to proce dure. SCDs NOK: Mellisa Cramer (Daughter) [phone] Code Status: DNR/DNI Consultants: cardiology Quality: Gen Med Crit Care VTE Prophylaxis VTE prophylaxis initiated: yes (mechanical comp device) Current Medications Current medication review: I attest that the foregoing medication list in t he medical record is true, accurate, and complete to the best of my knowled ge. Advanced Care Plan 65 or Older Discussed with: patient Discussion included: code status (DNR/DNI) Attestations Attestation needed: supervising physician Rosalino Fair 12/01/21 1650: Attestations Teaching Physician Attestation 1st visit w/ resident: I was present with the resident during the histo ry and exam. I discussed the case with the resident, Maria Hernandez, PGY1, and agree with the findings and plan as documented in his note. Electronically Signed by Javier Mcfadden DO R1 o n 12/01/21 at 1358 Electronically Signed by Rosalino Fair MD on 12/01 at 1652 RPT #:[id number] END OF REPORT 2021-12-01 10:56:00-00:00 [facility] ([facility]) EMERGENCY PROVIDER REPORT REPORT#:[id number] REPORT STATUS: Signed DATE:12/01/21 TIME: 1056 PATIENT: JENNIFER RODGERS JR UNIT #: [id number] [facility] AGE: 81 SEX: M PCP PHYS: Stuart Motley MD SERVICE AUTHOR: Nahum Arreola MD LOCATION: [facility] * ALL edits or amendments must be made on the el [employer]/computer document * HPI-Palpit/Arrhyth Free Text HPI Notes Free Text HPI Notes Defibrillator fired x 2 last night. He states he felt palpitations and sob/ dizzy at the time. Feeling better this morning. General Initial Greet Date/Time 12/01/21 1030 Presentation Chief Complaint AICD fired, Palpitations Hx Obtained From Patient Onset Occurred Yesterday Progression since Onset Resolved Review of Systems ROS Statements All systems rev neg except as marked. Basic Review of Systems Basic ROS EYES: No redness, : No dysuria/frequency, MS: No ext swelling/pain, HEM: No bleeding/bruising Focused Review of Systems Constitutional Denies: Weakness - generalized. Respiratory Denies: Shortness of breath. Cardiovascular Denies: Chest pain. GI Denies: Abdominal pain. Neurologic Denies: Focal weakness. Past Medical History - Adult Stated Complaint TRANSFER-FIRING DEFIB Allergies Coded Allergies: Penicillins (RASH-UNKNOWN 09/12/13) Home Medications Reported Medications FUROSEMIDE (LASIX) 40 MG PO BID 9A 4P AMIODARONE (CORDARONE) 200 MG PO BID CARVEDILOL (COREG) 25 MG PO BID WARFARIN (COUMADIN) 7.5 MG PO DAILY SPIRONOLACTONE (ALDACTONE) 25 MG PO QAM GLIMEPIRIDE (AMARYL) 2 MG PO C BK SIMVASTATIN (ZOCOR) 20 MG PO BEDTIME QUINAPRIL (ACCUPRIL) 40 MG PO DAILY TAMSULOSIN ER (FLOMAX) 0.4 MG PO BEDTIME MULTIVITAMIN/MIN (MULTIVITAMIN/MINERALS) 1 TAB P O DAILY ASPIRIN 81 MG PO DAILY GLUCOSAMINE/D3/BOSWELLIA WILBERTO (OSTEO BI-FLEX) 2 TAB PO DAILY [Acidophillus] 2 CAP PO DAILY [EYE DROPS] 1 GTT OU DAILY PRN NEEDED ITCHING EYES Discontinued Reported Medications levoFLOXacin (LEVAQUIN) 500 MG PO DAILY DIGOXIN (LANOXIN) 0.125 MG PO DAILY amLODIPine (NORVASC) 5 MG PO DAILY OMEPRAZOLE ER (PriLOSEC) 40 MG PO DAILY OMEGA-3/DHA/EPA/FISH OIL (FISH OIL 500 MG SOFTGE L) 1,000 MG PO DAILY Additional Medical History Arrhythmia Smoking status: Smoking status for patients 13 years old or old er: Unknown,if ever smoked Physical Exam Vital Signs Vital Signs First Documented: Result Date Time Pulse Ox 96 12/01 1029 B/P 124/71 12/01 1029 B/P Mean 88 12/01 1029 O2 Delivery Room air 12/01 1029 Temp 37.0 12/01 1029 Pulse 73 12/01 1029 Resp 20 12/01 1029 Last Documented: Result Date Time Pulse Ox 96 12/01 1029 B/P 124/71 12/01 1029 B/P Mean 88 12/01 1029 O2 Delivery Room air 12/01 1029 Temp 37.0 12/01 102 Pulse 73 12/01 1029 Resp 20 12/01 1029 Review of Vital Signs Reviewed Basic Physical Exam Basic PE HEAD: Atraumatic/NC, EYES: PERRL, conj clear, ENT: Membranes moist, NECK: Supple, ABD: Soft/non- tender, EXT: No gross abnormality, SKIN: No rashes, warm/dry, NEURO: alert oriented, NEURO: gross mo vement NL, PSYCH: NL thought content Focused PE General/Const General/Const Awake, Alert, No acute distress Resp/Chest Respiratory/Chest No respiratory distress Cardiovascular Cardiovascular Heart rate NL Interpretation Diagnostics Lab Results Interpretation Results Laboratory Tests 12/01/21 1100: [Embedded Image Not Available] Laboratory Tests: 12/01 1100 Chemistry Sodium (137 - 145 MMOL/L) 139 Potassium (3.5 - 5.1 MMOL/L) 3.8 Chloride (98 - 107 MMOL/L) 102 Carbon Dioxide (22 - 30 MMOL/L) 29 BUN (9 - 20 MG/DL) 24 H Creatinine (0.66 - 1.25 MG/DL) 1.10 Glomerular Filtr Rate > 60 Glucose (74 - 106 MG/DL) 141 H Calcium (8.4 - 10.2 MG/DL) 9.4 Troponin I (0.012 - 0.033 NG/ML) 0.035 H Coagulation INR (0.86 - 1.14) 2.6 H PT Patient/Control Mix (9.4 - 12.7 SECONDS) 29. 7 H Hematology WBC (3.8 - 9.8 K/MM3) 8.1 RBC (3.95 - 5.67 M/MM3) 4.69 Hgb (12.4 - 16.7 G/DL) 14.0 Hct (35.9 - 49.5 %) 44.2 MCV (81.7 - 96.1 fL) 94 MCH (27.6 - 33.2 pg) 29.9 MCHC (32.9 - 35.5 %) 31.7 L RDW (12.1 - 15.2 %) 14.4 Plt Count (129 - 368 K/MM3) 126 L Neut # (Auto) (2.0 - 7.6 K/mm3) 5.33 Lymph # (Auto) (1.0 - 3.8 K/mm3) 2.16 [place] # (Auto) (0.1 - 0.8 K/mm3) 0.56 Eos # (Auto) (0.0 - 0.2 K/mm3) 0.04 Baso # (Auto) (0.0 - 0.2 K/mm3) 0.03 Nucleated RBCs # (Man) (0.0 - 0.1 K/mm3) 0.00 Patient Discharge Departure Vital Signs/Condition Vital Signs First Documented: Result Date Time Pulse Ox 96 12/01 1029 B/P 124/71 12/01 1029 B/P Mean 88 12/01 1029 O2 Delivery Room air 12/01 1029 Temp 37.0 12/01 1029 Pulse 73 12/01 1029 Resp 20 12/01 1029 Last Documented: Result Date Time Pulse Ox 96 12/01 1029 B/P 124/71 12/01 1029 B/P Mean 88 12/01 1029 O2 Delivery Room air 12/01 1029 Temp 37.0 12/01 1029 Pulse 73 12/01 1029 Resp 20 12/01 1029 All vital signs available at the time of this en try have been reviewed. Clinical Impression Clinical Impression Primary Impression: AICD discharge Disposition Decision Admit Admit Physician Name Rosalino Fair MD Admit Physician Hospitalist Request Time 1101 Request Date 12/01/21 )( Admission Accepts Yes )( Accepted Time 1101 )( Accepted Date 12/01/21 Call Information will see patient at [address] [facility] #:[phone] END OF REPORT
[2023-03-03] MEDS ORDERED: ETOMIDATE 20 MG/10 ML VIAL IV ONE (11:31)
[2023-03-03 11:49] LABS: Absolute Lymphocytes (CBC) 3.2 K/uL (0.7-4.9); Hematocrit 46.1 % (39.6-49.0); MPV 10.4 fL (7.6-11.3); RBC Red Blood Cell Count 5.25 M/uL (4.33-5.43)
--- NOTE | 2023-03-03 12:08 | RAD REPORT ---
EXAM DESCRIPTION: RAD - Chest Single View - 03/03/2023 11:50 am CLINICAL HISTORY: vtach Chest pain. COMPARISON: Chest Single View dated 12/01/2021; Chest Pa And Lat (2 Views) dated 03/24/2021; CHEST SIN GLE VIEW dated 02/27/2012; CHEST PA AND LAT 2 VIEW dated 06/14/2005 FINDINGS: Portable technique limits examination quality. The lungs are grossly clear. The heart is moderately enlarged. Multi lead pacer/defibrillator device is present. IMPRESSION: No acute intrathoracic process suspected.
--- NOTE | 2023-03-03 12:18 | ER ---
Nurse's Notes [facility] Name: Babar Andres Jr Age: 82 yrs Sex: Male : 1940 Arrival Date: 03/03/2023 Time: 11:10 Bed 3 Private MD: Diagnosis: Ventricular tachycardia;Hypotension, unspecified Presentation: 03/03 11:16 Chief complaint: Patient states: sent here by Dr. Webster for abnormal EKG. aa5 11:16 Acuity: GISSELLE 1 aa5 11:16 Method Of Arrival: Wheelchair aa5 11:16 Coronavirus screen: At this time, the client does not indicate any symptoms associated aa5 with coronavirus-19. Ebola Screen: Patient denies travel to an Ebola-affected area in the 21 days before illness onset. Initial Sepsis Screen: Does the patient meet any 2 criteria? HR > 90 bpm. Does the patient have a suspected source of infection? No. Patient's initial sepsis screen is negative. Risk Assessment: Do you want to hurt yourself or someone else? Patient reports no desire to harm self or others. Onset of symptoms was March 03, 2023. Historical: - Allergies: 11:16 PENICILLINS; aa5 - PMHx: 11:16 Atrial fibrillation; Congestive heart failure; diabetes mellitus; Hypertensive disorder;aa5 - PSHx: 11:16 eye; pacemaker; aa5 - Immunization history:: Adult Immunizations up to date. - Social history:: Smoking status: unknown. Screenin:30 [facility] ED Fall Risk Assessment (Adult) Score/Fall Risk Level 0 - 2 = Low Risk. Abuse eh3 screen: Denies threats or abuse. Denies injuries from another. Nutritional screening: No deficits noted. Tuberculosis screening: No symptoms or risk factors identified. Assessment: 11:16 General: Appears comfortable, Behavior is calm, cooperative. Pain: Denies pain. Neuro: aa5 Level of Consciousness is awake, alert, obeys commands, Oriented to person, place, time, situation. Cardiovascular: Rhythm is ventricular tachycardia. Respiratory: Airway is patent Respiratory effort is even, unlabored, Respiratory pattern is regular, symmetrical, Breath sounds are clear bilaterally. GI: Abdomen is round Bowel sounds present X 4 quads. Abd is soft X 4 quads. : No signs and/or symptoms were reported regarding the genitourinary system. EENT: No signs and/or symptoms were reported regarding the EENT system. Derm: Skin is pink, warm \T\ dry. Musculoskeletal: Range of motion: intact in all extremities. 11:32 Reassessment: O2 sat decreased to 84% via 2 L NC, pt placed on non-rebreather mask and aa5 O2 sat continued to decrease to 70%, pt was assisted with ventilations via BVM, O2 sat increased to 82%, Nasopharyngeal airway 32 Fr inserted to right nare, and O2 sat increased to 94% via BVM, current O2 sat now is 97% via BVM.. 11:46 Reassessment: Nasopharyngeal airway removed by RT, pt now awake. . aa5 12:00 Reassessment: Patient is alert, oriented x 3, equal unlabored respirations, skin aa5 warm/dry/pink. Patient states feeling better. 12:30 Reassessment: Patient and/or family updated on plan of care and expected duration. Pain eh3 level reassessed. Patient is alert, oriented x 3, equal unlabored respirations, skin warm/dry/pink. 13:35 Reassessment: Patient and/or family updated on plan of care and expected duration. Pain cm10 level reassessed. Patient is alert, oriented x 3, equal unlabored respirations, skin warm/dry/pink. Patient states feeling better. Patient states symptoms have improved. Vital Signs: 11:16 BP 84 / 59; Pulse 142; Resp 20 S; Temp 97.2(TE); Pulse Ox 95% on R/A; aa5 11:18 BP 89 / 76; Pulse 156; Resp 19 S; Pulse Ox 97% on 2 lpm NC; aa5 11:22 BP 101 / 82; Pulse 155; Resp 22 S; Pulse Ox 98% on 2 lpm NC; aa5 11:24 BP 108 / 75; Pulse 155; Resp 19 S; Pulse Ox 100% on 2 lpm NC; aa5 11:27 BP 93 / 64; Pulse 145; Resp 18 S; Pulse Ox 100% on 2 lpm NC; aa5 11:32 BP 92 / 59; Pulse 70; Resp 26 A; Pulse Ox 82% on BVM; aa5 11:35 BP 88 / 59; Pulse 64; Resp 16 S; Pulse Ox 98% on Non-rebreather mask; aa5 11:36 BP 92 / 59; Pulse 66; Resp 22 S; Pulse Ox 99% on Non-rebreather mask; aa5 11:40 BP 88 / 59; Pulse 64; Resp 15 S; Pulse Ox 100% on Non-rebreather mask; aa5 11:43 BP 99 / 74; Pulse 63; Resp 14 S; Pulse Ox 99% on 2 lpm Non-rebreather mask; aa5 11:46 BP 98 / 57; Pulse 61; Resp 15 S; Pulse Ox 100% on 2 lpm NC; aa5 11:50 BP 84 / 50; Pulse 61; Resp 15 S; Pulse Ox 99% on 2 lpm NC; aa5 11:53 BP 82 / 51; Pulse 61; Resp 15 S; Pulse Ox 97% on 2 lpm NC; aa5 11:56 BP 84 / 61; Pulse 63; Resp 16 S; Pulse Ox 95% on 2 lpm NC; aa5 12:00 BP 83 / 51; Pulse 62; Resp 16 S; Pulse Ox 95% on 2 lpm NC; aa5 12:09 BP 90 / 75; Pulse 68; Resp 18 S; Pulse Ox 95% on 2 lpm NC; aa5 12:15 BP 94 / 54; Pulse 68; Resp 15; Pulse Ox 96% on R/A; eh3 12:25 BP 85 / 56; Pulse 74; Resp 15; Pulse Ox 95% on R/A; eh3 12:35 BP 98 / 61; Pulse 66; Resp 16; Pulse Ox 95% on R/A; eh3 12:48 BP 90 / 55; Pulse 67; Resp 20; Pulse Ox 93% on 2 lpm NC; cm10 13:00 BP 86 / 49; Pulse 67; Resp 15; Pulse Ox 96% on 3 lpm NC; cm10 13:15 BP 80 / 59; Pulse 68; Resp 16; Pulse Ox 95% on 3 lpm NC; cm10 13:27 BP 88 / 65; Pulse 68; Resp 16; Pulse Ox 96% on 3 lpm NC; cm10 13:30 BP 91 / 61; Pulse 67; Resp 16; Pulse Ox 95% on 3 lpm NC; cm10 13:40 BP 95 / 56; Pulse 69; Resp 16; Pulse Ox 97% on 3 lpm NC; cm10 12:00 MD notified of continuous BP readings of systolic around 80s aa5 ED Course: 11:12 Patient arrived in ED. am2 11:15 Ramírez Inman DO is Attending Physician. ms3 11:16 Arm band placed on Patient placed in an exam room, on a stretcher. aa5 11:16 Patient has correct armband on for positive identification. Placed in gown. Bed in low aa5 position. Call light in reach. Side rails up X2. Client placed on continuous cardiac and pulse oximetry monitoring. NIBP monitoring applied. 11:23 EKG done, by ED staff, reviewed by Ramírez Inman DO. em1 11:23 Inserted saline lock: 22 gauge in right hand, using aseptic technique. IV inserted by aa5 Erica invas tech. 11:23 Inserted saline lock: 20 gauge in left hand, using aseptic technique. IV inserted by aa5 Lalita Monaco RN. 11:28 Assist provider with cardioversion (synchronized) with pads, for treatment of V tach aa5 with 200 joules X 1. Set up for procedure. Performed by Ramírez Inman DO Monitored with case monitor, pulse ox, Post procedure rhythm is Paced . Patient tolerated well. 11:43 Triage completed. aa5 11:52 XRAY Chest (1 view) In Process Unspecified. EDMS 12:00 Report given to WASHINGTON Burroughs. aa5 12:08 Radha Groves, RN is Primary Nurse. aa5 12:25 Notified ED physician of a critical lab result(s). Troponin elevated. cm10 12:30 Provided Education on: N/A. eh3 13:21 Report given to WASHINGTON Morrison at [facility]. cm10 13:48 Patient transferred, IV remains in place. cm10 13:48 Report given to Chetna Portfolio Consultant with [facility] who assumes care of patient. cm10 Pt A\T\Ox4, respirations even and unlabored. Pt stable for transport to [facility] at this time. Administered Medications: 11:25 Drug: Etomidate IVP 10 mg Route: IVP; Site: right hand; aa5 11:26 Follow up: Response: Pt remains awake aa5 11:27 Drug: Etomidate IVP 10 mg Route: IVP; Site: right hand; aa5 11:28 Follow up: Response: Pt sedated aa5 11:41 Drug: NS 0.9% IV 500 ml Route: IV; Rate: bolus; Site: left hand; aa5 12:00 Follow up: IV Status: Completed infusion aa5 12:07 Drug: NS 0.9% IV 500 ml Route: IV; Rate: bolus; Site: left antecubital; aa5 12:14 Follow up: IV Status: Completed infusion; IV Intake: 500ml aa5 13:34 Drug: Lactated Ringers Solution IV 1000 ml Route: IV; Rate: 125 ml/hr; Site: left hand; cm10 13:41 Follow up: Response: No adverse reaction; IV Status: Infusion continued upon transfer cm10 Medication: 13:48 VIS not applicable for this client. cm10 Intake: 12:14 IV: 500ml; Total: 500ml. aa5 Outcome: 12:17 ER care complete, transfer ordered by . ms3 13:47 Transferred by ground EMS [facility]. to other acute care facility: [facility]. cm10 Transfer form completed. X-rays sent w/ patient. 13:47 Condition: stable 13:47 Instructed on the need for transfer. 14:01 Patient left the ED. cm10 Signatures: Dispatcher [employer] EDRitesh Robles em1 Radha Groves, RN RN aa5 Monica Martin am2 Ramírez Inman DO DO ms3 Alisha Hedrick, RN RN eh3 Heike Tripathi, RN RN cm10 Corrections: (The following items were deleted from the chart) 12:01 11:32 BP 92 / 59; Pulse 70bpm; Resp 26bpm; Assisted; aa5 aa5 12:13 11:32 Reassessment: O2 sat decreased to 84% via 2 L NC, pt placed on non-rebreather aa5 mask and O2 sat continued to decrease to 70%, pt was assisted with ventilations via BVM, O2 sat increased to 82%, Nasal trumpet 32 Fr inserted to right nare, and O2 sat increased to 94% via BVM, current O2 sat now is 97% via BVM.. aa5 12:13 11:32 Reassessment: O2 sat decreased to 84% via 2 L NC, pt placed on non-rebreather aa5 mask and O2 sat continued to decrease to 70%, pt was assisted with ventilations via BVM, O2 sat increased to 82%, Nasal trumpet 32 Fr inserted to right nare, and O2 sat increased to 94% via BVM, current O2 sat now is 97% via BVM.. aa5 13:44 13:40 BP 95 / 56 Art.line; Pulse 69bpm; Resp 16bpm; Pulse Ox 97% 3 lpm Nasal Cannula; cm10 cm10
--- NOTE | 2023-03-03 12:18 | EDPHYS ---
Physician Documentation [facility] Name: Babar Andres Jr Age: 82 yrs Sex: Male : 1940 Arrival Date: 03/03/2023 Time: 11:10 Bed 3 Private MD: ED Physician Ramírez Inman HPI: 03/03 11:50 This 82 yrs old Male presents to ER via Wheelchair with complaints of Dizziness, ms3 Abnormal Lab Results - ekg. 11:50 82-year-old male with past medical history of atrial fibrillation, diabetes, congestive ms3 heart failure, hypertension presents from clinic for tachycardia and hypotension. Patient is without pain. Patient endorses weakness and dizziness. Patient denies alleviating or inciting factors. Historical: - Allergies: 11:16 PENICILLINS; aa5 - PMHx: 11:16 Atrial fibrillation; Congestive heart failure; diabetes mellitus; Hypertensive disorder;aa5 - PSHx: 11:16 eye; pacemaker; aa5 - Immunization history:: Adult Immunizations up to date. - Social history:: Smoking status: unknown. ROS: 11:50 ENT: Negative for injury, pain, and discharge, Neck: Negative for injury, pain, and ms3 swelling. 11:50 MS/Extremity: Negative for injury and deformity, Skin: Negative for injury, rash, and discoloration, Neuro: Negative for headache, weakness, numbness, tingling. 11:50 Constitutional: Positive for malaise. 11:50 Cardiovascular: Positive for Tachycardia. 11:50 All other systems are negative. Exam: 12:55 Constitutional: This is a well developed, well nourished patient who is awake, alert, ms3 and in no acute distress. Head/Face: Normocephalic, atraumatic. Neck: Trachea midline, no cervical lymphadenopathy. Supple, full range of motion without nuchal rigidity, or vertebral point tenderness. No Meningismus. Chest/axilla: Normal chest wall appearance and motion. Nontender with no deformity. 12:55 Abdomen/GI: Soft, non-tender, with normal bowel sounds. No distension or tympany. No guarding or rebound. No evidence of tenderness throughout. Skin: Warm, dry with normal turgor. Normal color with no rashes, no lesions, and no evidence of cellulitis. MS/ Extremity: Pulses equal, no cyanosis. Neurovascular intact. Full, normal range of motion. 12:55 Cardiovascular: Rate: tachycardic, Rhythm: regular, Pulses: weak. 12:55 ECG was reviewed by the Attending Physician. 12:59 ECG was reviewed by the Attending Physician. ms3 Vital Signs: 11:16 BP 84 / 59; Pulse 142; Resp 20 S; Temp 97.2(TE); Pulse Ox 95% on R/A; aa5 11:18 BP 89 / 76; Pulse 156; Resp 19 S; Pulse Ox 97% on 2 lpm NC; aa5 11:22 BP 101 / 82; Pulse 155; Resp 22 S; Pulse Ox 98% on 2 lpm NC; aa5 11:24 BP 108 / 75; Pulse 155; Resp 19 S; Pulse Ox 100% on 2 lpm NC; aa5 11:27 BP 93 / 64; Pulse 145; Resp 18 S; Pulse Ox 100% on 2 lpm NC; aa5 11:32 BP 92 / 59; Pulse 70; Resp 26 A; Pulse Ox 82% on BVM; aa5 11:35 BP 88 / 59; Pulse 64; Resp 16 S; Pulse Ox 98% on Non-rebreather mask; aa5 11:36 BP 92 / 59; Pulse 66; Resp 22 S; Pulse Ox 99% on Non-rebreather mask; aa5 11:40 BP 88 / 59; Pulse 64; Resp 15 S; Pulse Ox 100% on Non-rebreather mask; aa5 11:43 BP 99 / 74; Pulse 63; Resp 14 S; Pulse Ox 99% on 2 lpm Non-rebreather mask; aa5 11:46 BP 98 / 57; Pulse 61; Resp 15 S; Pulse Ox 100% on 2 lpm NC; aa5 11:50 BP 84 / 50; Pulse 61; Resp 15 S; Pulse Ox 99% on 2 lpm NC; aa5 11:53 BP 82 / 51; Pulse 61; Resp 15 S; Pulse Ox 97% on 2 lpm NC; aa5 11:56 BP 84 / 61; Pulse 63; Resp 16 S; Pulse Ox 95% on 2 lpm NC; aa5 12:00 BP 83 / 51; Pulse 62; Resp 16 S; Pulse Ox 95% on 2 lpm NC; aa5 12:09 BP 90 / 75; Pulse 68; Resp 18 S; Pulse Ox 95% on 2 lpm NC; aa5 12:15 BP 94 / 54; Pulse 68; Resp 15; Pulse Ox 96% on R/A; eh3 12:25 BP 85 / 56; Pulse 74; Resp 15; Pulse Ox 95% on R/A; eh3 12:35 BP 98 / 61; Pulse 66; Resp 16; Pulse Ox 95% on R/A; eh3 12:48 BP 90 / 55; Pulse 67; Resp 20; Pulse Ox 93% on 2 lpm NC; cm10 13:00 BP 86 / 49; Pulse 67; Resp 15; Pulse Ox 96% on 3 lpm NC; cm10 13:15 BP 80 / 59; Pulse 68; Resp 16; Pulse Ox 95% on 3 lpm NC; cm10 13:27 BP 88 / 65; Pulse 68; Resp 16; Pulse Ox 96% on 3 lpm NC; cm10 13:30 BP 91 / 61; Pulse 67; Resp 16; Pulse Ox 95% on 3 lpm NC; cm10 13:40 BP 95 / 56; Pulse 69; Resp 16; Pulse Ox 97% on 3 lpm NC; cm10 12:00 MD notified of continuous BP readings of systolic around 80s aa5 Procedures: 11:50 Cardioversion: (synchronized) for treatment of V tach, with 200 joules X 1. Post ms3 procedure rhythm is Paced, the patient tolerated the procedure well. Moderate sedation: Pre-procedure assessment: the patient has been NPO an unknown amount of time prior to arrival, Airway assessment: able to hyperextend neck, able to maintain airway, can open mouth without difficulty, Monitoring during procedure: playground monitor, continuous pulse oximetry, nurse at bedside at all times, Medications employed: Etomidate, 20 mg(s), Post-procedure assessment: the patient is deeply sedated, Respiratory status: requires supplemental oxygen to maintain acceptable oxygen saturation, a reversal agent was not used. MDM: 11:41 Patient medically screened. ms3 12:59 Differential diagnosis: cardiac arrhythmia, generalized weakness, hypovolemia, ms3 idiopathic dizziness, vertigo. Data reviewed: vital signs, nurses notes, lab test result(s), EKG, radiologic studies, and as a result, I will transfer patient. Consideration of Admission/Observation Patient transferred. Management of patient was discussed with the following: ED Physician, Dr Mcgee, at [facility]. I considered the following discharge prescriptions or medication management in the emergency department Medications were administered in the Emergency Department. See MAR. Independent interpretation of the following test(s) in the Emergency Department EKG: See my EKG interpretation above playground monitor: rate is 156 beats/min, Rhythm is ventricular tachycardia, with no ectopy, Interpretation: ventricular tachycardia. Historians other than the Patient: Daughter/Son: Patient's son. External Records Reviewed: EKG from PMD clinic shows V Tach with rate of154. Care significantly affected by the following chronic conditions: Diabetes, Hypertension, Congestive Heart Failure. Counseling: I had a detailed discussion with the patient and/or guardian regarding: the historical points, exam findings, and any diagnostic results supporting the discharge/admit diagnosis, lab results, radiology results, the need to transfer to another facility. ED course: Discussed case with patient's embedded firmware developer Dr Candelaria who contacted Dr Motley (). Dr Motley will consult on patient at [facility]. Will transfer to [facility] for continuity of care.. 03/03 11:30 Order name: Basic Metabolic Panel; Complete Time: 12:23 03/03 11:30 Order name: CBC with Diff; Complete Time: 12:03/03 11:30 Order name: Troponin HS; Complete Time: 12:03/03 11:30 Order name: XRAY Chest (1 view); Complete Time: 12:03/03 11:30 Order name: EKG; Complete Time: :03/03 11:30 Order name: Cardiac monitoring; Complete Time: 11:03/03 11:30 Order name: EKG - Nurse/Tech; Complete Time: 11:03/03 11:30 Order name: IV Saline Lock; Complete Time: 11:03/03 11:30 Order name: Labs collected and sent; Complete Time: :03/03 11:30 Order name: O2 Per Protocol; Complete Time: :03/03 11:30 Order name: O2 Sat Monitoring; Complete Time: EC:59 Rate is 156 beats/min. Rhythm is regular. QRS interval is prolonged. Clinical ms3 impression: V Tach. Interpreted by me. Reviewed by me. 12:59 Rate is 73 beats/min. Rhythm is irregularly irregular. Left axis deviation noted. QRS ms3 interval is prolonged. Clinical impression: Paced. Interpreted by me. Reviewed by me. Administered Medications: 11:25 Drug: Etomidate IVP 10 mg Route: IVP; Site: right hand; aa5 11:26 Follow up: Response: Pt remains awake aa5 11:27 Drug: Etomidate IVP 10 mg Route: IVP; Site: right hand; aa5 11:28 Follow up: Response: Pt sedated aa5 11:41 Drug: NS 0.9% IV 500 ml Route: IV; Rate: bolus; Site: left hand; aa5 12:00 Follow up: IV Status: Completed infusion aa5 12:07 Drug: NS 0.9% IV 500 ml Route: IV; Rate: bolus; Site: left antecubital; aa5 12:14 Follow up: IV Status: Completed infusion; IV Intake: 500ml aa5 13:34 Drug: Lactated Ringers Solution IV 1000 ml Route: IV; Rate: 125 ml/hr; Site: left hand; cm10 13:41 Follow up: Response: No adverse reaction; IV Status: Infusion continued upon transfer cm10 Disposition Summary: 03/03/23 12:17 Transfer Ordered Transfer Location: Other Acute Care Facility ms3 Reason: Higher level of care ms3 Condition: Stable ms3 Problem: new ms3 Symptoms: are unchanged ms3 Accepting Physician: (03/03/23 14:01) cm10 Diagnosis - Ventricular tachycardia ms3 - Hypotension, unspecified ms3 Forms: - Medication Reconciliation Form ms3 - SBAR form ms3 Critical care time excluding procedures: 12:59 Critical care time: Bedside Care: 40 minutes, Consultation: 10 minutes, Family ms3 Intervention: 10 minutes. Total time: 60 minutes Signatures: Dispatcher [employer] EDRadha Damon RN RN aa5 Ramírez Inman DO DO ms3 Alisha Hedrick RN RN 3 Heike Tripathi RN RN cm10 Corrections: (The following items were deleted from the chart) 13:06 12:55 ECG was reviewed by the Attending Physician. ms3 ms3 14:01 12:17 Dr harris cm10
[2023-03-03 12:21] LABS: Potassium 4.8 mEq/L (3.5-5.1)
[2023-03-03 12:23] LABS: Troponin High Sensitivity 451.2 pg/mL (<58.9)
[2023-03-03] MEDS ORDERED: Ringers Lactate 1,000 ML IV ONE (13:39)
[2023-03-03 14:06] VITALS: TEMP 97.2
[2023-03-03 14:37] VITALS: BP 95/56; O2SAT 97
--- NOTE | 2023-03-04 13:27 | EKG ---
Test Date: 2023-03-03 Test Time: 11:35:59 Fitness Professional: PAT MEASUREMENT RESULTS: Intervals: Rate: 67 AL: QRSD: 218 QT: 538 QTc: 568 [place]: P: AL: QRS: 126 T: -68 INTERPRETIVE STATEMENTS: Demand pacemaker, interpretation is based on intrinsic rhythm Wide QRS rhythm with premature supraventricular complexes with occasional premature ventricular complexes in a pattern of bigem Nonspecific intraventricular block Lateral infarct, age undetermined Marked T wave abnormality, consider inferior ischemia Marked T wave abnormality, consider anterior ischemia Abnormal ECG Electronically Signed On 03-04-23 13:25:10 CDT by Rodriguez Adames
--- NOTE | 2023-03-04 13:27 | EKG ---
Test Date: 2023-03-03 Test Time: 11:23:07 Train Operations Supervisor: PAT MEASUREMENT RESULTS: Intervals: Rate: 156 WI: QRSD: 212 QT: 348 QTc: 560 [place]: P: WI: QRS: -90 T: 191 INTERPRETIVE STATEMENTS: Ventricular tachycardia. Electronically Signed On 03-04-23 13:25:45 CDT by Rodriguez Adames
== END 2023-03-03 14:01 ==
LOC: ER 11:10
DX: I47.20 Ventricular tachycardia, unspecified (principal); I95.9 Hypotension, unspecified; I10 Essential (primary) hypertension; I48.91 Unspecified atrial fibrillation; I50.9 Heart failure, unspecified; Z95.0 Presence of cardiac pacemaker; Z88.0 Allergy status to penicillin
CPT/HCPCS: 92960; 96361; 93005 ×2; 85025; 80048; 36415; 84484; 71045; 96374; 99291; J7120